=== PATIENT | female | born 1930 | race Caucasian/White ===

== ENCOUNTER 2017-11-10 13:13 | Inpatient (IN) ==
[2017-11-10 14:16] LABS: Bilirubin,Urine Negative (Negative); Blood,Urine Negative (Negative); Clarity,Urine Clear (Clear); Color,Urine Yellow (Yellow); Glucose,Urine (UA) Normal (Normal); Ketones,Urine Negative (Negative); Leukocyte Esterase,Urine Small (Negative); Nitrite,Urine Negative (Negative); Protein,Urine Negative (Neg-Trace); Specific Gravity,Urine 1.018 (1.010-1.025); Urobilinogen,Urine Normal (Normal)
[2017-11-10 14:19] LABS: Basophils # 0.1 K/mcL (0.0-0.2); Basophils % 0.3 %; Eosinophils # 0.1 K/mcL (0.0-0.6); Eosinophils % 0.5 %; Hematocrit 36.6 % (35.3-44.9); Hemoglobin 11.8 g/dL (11.5-15.4); Immature Granulocytes % 0.2 % (0-4); Lymphocytes # 12.2 K/mcL (0.6-4.6); Lymphocytes % 65.9 %; Mean Corpuscular HGB Conc 32.2 g/dL (31.6-35.5); Mean Corpuscular Hemoglobin 30.9 pg (28.0-33.3); Mean Corpuscular Volume 95.8 fL (83.0-100.0); Mean Platelet Volume 10.4 fL (9.4-12.4); Monocytes # 1.2 K/mcL (0.0-1.3); Monocytes % 6.5 %; Neutrophils # 4.9 K/mcL (1.6-8.9); Platelet Count 142 K/mcL (140-400); Red Blood Count 3.82 M/mcL (3.82-4.97); Red Cell Distribution Width 13.8 % (11.5-14.5); Segmented Neutrophils % 26.6 %
[2017-11-10 14:19] LABS: Bacteria,Urine None Seen per hpf (None-Few); Hyaline Casts,Urine None Seen per lpf (None-Few); RBC,Urine 0-3 per hpf (0-3); Squamous Epithelial Cell,Urine Moderate per lpf (None-Few); WBC,Urine 0-3 per hpf (0-3)
[2017-11-10 14:22] LABS: Platelet Estimate Normal (Normal)
[2017-11-10 14:39] LABS: Alanine Aminotransferase 12 Units/L (7-52); Albumin/Globulin Ratio 1.9 (1.1-2.2); Alkaline Phosphatase 61 Units/L (34-104); Aspartate Amino Transferase 16 Units/L (13-39); BUN/Creatinine Ratio 15 (6-26); Bilirubin,Direct 0.1 mg/dL (0.0-0.2); Bilirubin,Indirect 0.3 mg/dL (0.0-1.2); Bilirubin,Total 0.4 mg/dL (0.3-1.0); Blood Urea Nitrogen 12 mg/dL (8-23); Calcium 8.9 mg/dL (8.6-10.3); Carbon Dioxide 25 mEq/L (23-29); Chloride 107 mEq/L (98-107); Globulin 2.1 g/dL (2.4-3.5); Glucose 105 mg/dL (70-105); Lipase 17 Units/L (11-82); Osmolality,Calculated 284 (280-300); Potassium 4.1 mEq/L (3.5-5.1); Sodium 137 mEq/L (136-145); Total Protein 6.1 g/dL (6.4-8.9); eGFR For Non-African Americans > 60 (> 60)
--- NOTE | 2017-11-10 14:44 | Emergency Department Note ---
Disposition Clinical Impression: Weakness Abdominal pain Qualifiers: Abdominal location: unspecified location Qualified Code(s): R10.9 - Unspecified abdominal pain Diverticulosis Qualifiers: Diverticulosis site: unspecified location Diverticulosis bleeding: diverticulosis without bleeding Qualified Code(s): K57.90 - Diverticulosis of intestine, part unspecified, without perforation or abscess without bleeding Disposition: Admitted As Inpatient Condition: Fair General Adult HPI - General Chief complaint: ED Urogenital-Female Stated complaint: Fever/Pain/Spasms/low BC/Weakness/Nausea Time Seen by Provider: 11/10/17 13:26 Source: patient Mode of arrival: ambulatory Limitations: no limitations Nursing Notes Reviewed: Yes Vital Signs Reviewed: Yes - History of Present Illness HPI Narrative: 86-year-old female with history of hypertension presents for evaluation of multiple complaints. No step fever and lower abdominal tenderness and spasm. Patient states that she was seen here over the past week. Notes to be seen that week ago for similar symptoms. Patient thought it was related to a possible Larson catheter. Patient fell a couple days ago with no LOC. Evaluate the ER at that time. Patient does live alone by herself. Presents in the care of family. Family states the patient's got progressively weak. Also complaining of lower abdominal tenderness. No nausea vomiting. Notes objective fevers. Denies any chest pain. 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 Pain Scale: 10 - Related Data Home Medications Medication Instructions Recorded Confirmed Gabapentin [Neurontin] 800 mg PO TID 06/02/15 11/10/17 Atenolol [Tenormin] 25 mg PO DAILY 07/16/15 11/10/17 Calcium Carbonate [Calcium] 2,000 mg PO DAILY 07/16/15 11/10/17 Ergocalciferol (VITAMIN D2) 1,000 unit PO DAILY 07/16/15 11/10/17 [Vitamin D] LORazepam [Ativan] 1 mg PO QAM 07/16/15 11/10/17 Multivitamin [Multivitamins] 1 each PO DAILY 07/16/15 11/10/17 LORazepam [Ativan] 2 mg PO HS 11/09/16 11/10/17 Tizanidine HCl [Zanaflex] 2 mg PO HS 11/09/16 11/10/17 HYDROcodone/Acet 7.5/325 mg [[place] 1 tab PO Q6H PRN 01/27/17 11/10/17 7.5-325 mg] Citalopram Hydrobromide 20 mg PO DAILY 11/10/17 11/10/17 [Citalopram HBr] DULoxetine [Cymbalta] 20 mg PO DAILY 11/10/17 11/10/17 Omeprazole [PriLOSEC] 20 mg PO DAILY 11/10/17 11/10/17 Previous Rx's Medication Instructions Recorded Oxybutynin [Ditropan] 5 mg PO BID 5 Days #10 tablet 11/03/17 Allergies Allergy/AdvReac Type Severity Reaction Status Date / Time No Known Allergies Allergy Verified 11/07/17 21:06 All systems ED: reviewed and negative except as stated. Constitutional: Reports: fever Cardiovascular: Denies: chest pain Respiratory: Denies: cough, dyspnea, wheezes Gastrointestinal: Reports: abdominal pain. 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: Reports: no BUILDING COMPONENTS DESIGNER history - Social History Smoking Status: Never smoker Smokeless Tobacco Status: No Alcohol use: Reports: none Drug use: Reports: none Physical Exam - General Limitations: no limitations General appearance: alert, anxious - Head Head exam: atraumatic, normocephalic, normal inspection, other (Aged ecchymosis over the chin.) - Eye Eye exam: Present: normal appearance, PERRL, EOMI - ENT ENT exam: normal exam - Neck Neck exam: Present: normal inspection - Chest Chest inspection: Present: normal inspection - Respiratory Respiratory exam: Present: normal lung sounds bilaterally. Absent: respiratory distress - Cardiovascular Cardiovascular exam: Present: regular rate, normal rhythm. Absent: systolic murmur - Abdominal Exam Abdominal exam: Present: soft, Non-Tender - Extremities Exam Extremities exam: Present: normal inspection. Absent: pedal edema - Back Exam Back exam: Present: normal inspection - Neurological Exam Neurological exam: Present: alert, oriented X3, CN II-XII intact - Skin Skin exam: Present: warm, dry, intact, normal color Course Course Narrative: Patient presents to the ED. Previous history shows recurrent ED visits over the past week. Those were reviewed. Concerns the patient does not have resources available at home to take care of herself. Will attempt to contact social work regarding assistance. We will also get basic lab CT scan will be obtained since the patient did fall. Patient will likely be admitted. - Reevaluation(s) Reevaluation #1: Patient's repeat abdominal exam is unremarkable. Patient states he has to use restroom. We will check a post void residual. Answers initially for urinary retention are the patient declined any full catheter placement. Patient would benefit from formal PT OT evaluation discharge planning. Time: 16:14 Vital Signs Temperature 98.1 F 11/10/17 13:18 Pulse Rate 56 11/10/17 13:18 Respiratory Rate 16 11/10/17 13:18 Blood Pressure 112/61 11/10/17 13:18 O2 Sat by Pulse Oximetry 97 11/10/17 13:18 Temperature 98.7 F 11/10/17 17:04 Pulse Rate 59 11/10/17 15:52 Respiratory Rate 16 11/10/17 17:04 Blood Pressure 118/69 11/10/17 17:04 O2 Sat by Pulse Oximetry 99 11/10/17 15:52 Oxygen Delivery Oxygen Delivery Room Air Medical Decision Making - MDM Narrative Medical decision making narrative: Patient presents for concerns of multiple complaints including a fever lower abdominal pain and spasm. Patient was evaluated multiple times over the past week. During the course the patient's ED evaluation the patient had CT abdomen and pelvis given her recent fall. No head injury. Patient states that she fell a couple days ago and was evaluated at that time. Patient's complaining of lower abdominal tenderness and pain. Patient had screening labs including a UA as well as CBC and CMP. UA shows no signs of infection. Chest x-ray also shows no signs of infection. Concerned that this is the patient does not have appropriate resources at home. Did get social work involved in patient's care. Patient would likely benefit from inpatient PT OT evaluation and discharge planning. - Lab Data Lab results reviewed: Yes I reviewed the patient's lab results. Result diagrams: 11/10/17 13:56 11/10/17 13:56 Lab Results 11/10/17 11/10/17 11/10/17 Range/Units 13:52 13:56 13:56 WBC 18.5 H (4.3-11.1) K/mcL RBC 3.82 (3.82-4.97) M/mcL Hgb 11.8 (11.5-15.4) g/dL Hct 36.6 (35.3-44.9) % MCV 95.8 (83.0-100.0) fL MCH 30.9 (28.0-33.3) pg MCHC 32.2 (31.6-35.5) g/dL RDW 13.8 (11.5-14.5) % Plt Count 142 (140-400) K/mcL MPV 10.4 (9.4-12.4) fL Immature Gran % 0.2 (0-4) % Seg Neutrophils % 26.6 % Lymphocytes % 65.9 % Monocytes % 6.5 % Eosinophils % 0.5 % Basophils % 0.3 % Neutrophils # 4.9 (1.6-8.9) K/mcL Lymphocytes # 12.2 H (0.6-4.6) K/mcL Monocytes # 1.2 (0.0-1.3) K/mcL Eosinophils # 0.1 (0.0-0.6) K/mcL Basophils # 0.1 (0.0-0.2) K/mcL Platelet Estimate Normal (Normal) Sodium 137 (136-145) mEq/L Potassium 4.1 (3.5-5.1) mEq/L Chloride 107 (98-107) mEq/L Carbon Dioxide 25 (23-29) mEq/L BUN 12 (8-23) mg/dL Creatinine 0.80 (0.60-1.20) mg/dL Est GFR ( Amer) > 60 (> 60) Est GFR (Non-Af Amer) > 60 (> 60) BUN/Creatinine Ratio 15 (6-26) Glucose 105 (70-105) mg/dL Calculated Osmolality 284 (280-300) Lactic Acid (0.5-2.2) mmol/L Calcium 8.9 (8.6-10.3) mg/dL Total Bilirubin 0.4 (0.3-1.0) mg/dL Direct Bilirubin 0.1 (0.0-0.2) mg/dL Indirect Bilirubin 0.3 (0.0-1.2) mg/dL AST 16 (13-39) Units/L ALT 12 (7-52) Units/L Alkaline Phosphatase 61 (34-104) Units/L Serum Total Protein 6.1 L (6.4-8.9) g/dL Albumin 4.0 (3.5-5.7) g/dL Globulin 2.1 L (2.4-3.5) g/dL Albumin/Globulin Ratio 1.9 (1.1-2.2) Lipase 17 (11-82) Units/L Urine Color Yellow (Yellow) Urine Clarity Clear (Clear) Urine pH 6.0 (5.0-8.0) pH Units Ur Specific [place] 1.018 (1.010-1.025) Urine Protein Negative (Neg-Trace) mg/dL Urine Glucose (UA) Normal (Normal) mg/dL Urine Ketones Negative (Negative) mg/dL Urine Blood Negative (Negative) Urine Nitrite Negative (Negative) Urine Bilirubin Negative (Negative) Urine Urobilinogen Normal (Normal) mg/dL Ur Leukocyte Esterase Small H (Negative) Urine Microscopic RBC 0-3 (0-3) per hpf Urine Microscopic WBC 0-3 (0-3) per hpf Ur Squamous Epith Cells Moderate H (None-Few) per lpf Urine Bacteria None Seen (None-Few) per hpf Hyaline Casts None Seen (None-Few) per lpf Ur Culture Indicated? YES A (NO) 11/10/17 Range/Units 13:56 WBC (4.3-11.1) K/mcL RBC (3.82-4.97) M/mcL Hgb (11.5-15.4) g/dL Hct (35.3-44.9) % MCV (83.0-100.0) fL MCH (28.0-33.3) pg MCHC (31.6-35.5) g/dL RDW (11.5-14.5) % Plt Count (140-400) K/mcL MPV (9.4-12.4) fL Immature Gran % (0-4) % Seg Neutrophils % % Lymphocytes % % Monocytes % % Eosinophils % % Basophils % % Neutrophils # (1.6-8.9) K/mcL Lymphocytes # (0.6-4.6) K/mcL Monocytes # (0.0-1.3) K/mcL Eosinophils # (0.0-0.6) K/mcL Basophils # (0.0-0.2) K/mcL Platelet Estimate (Normal) Sodium (136-145) mEq/L Potassium (3.5-5.1) mEq/L Chloride (98-107) mEq/L Carbon Dioxide (23-29) mEq/L BUN (8-23) mg/dL Creatinine (0.60-1.20) mg/dL Est GFR ( Amer) (> 60) Est GFR (Non-Af Amer) (> 60) BUN/Creatinine Ratio (6-26) Glucose (70-105) mg/dL Calculated Osmolality (280-300) Lactic Acid 1.0 (0.5-2.2) mmol/L Calcium (8.6-10.3) mg/dL Total Bilirubin (0.3-1.0) mg/dL Direct Bilirubin (0.0-0.2) mg/dL Indirect Bilirubin (0.0-1.2) mg/dL AST (13-39) Units/L ALT (7-52) Units/L Alkaline Phosphatase (34-104) Units/L Serum Total Protein (6.4-8.9) g/dL Albumin (3.5-5.7) g/dL Globulin (2.4-3.5) g/dL Albumin/Globulin Ratio (1.1-2.2) Lipase (11-82) Units/L Urine Color (Yellow) Urine Clarity (Clear) Urine pH (5.0-8.0) pH Units Ur Specific [place] (1.010-1.025) Urine Protein (Neg-Trace) mg/dL Urine Glucose (UA) (Normal) mg/dL Urine Ketones (Negative) mg/dL Urine Blood (Negative) Urine Nitrite (Negative) Urine Bilirubin (Negative) Urine Urobilinogen (Normal) mg/dL Ur Leukocyte Esterase (Negative) Urine Microscopic RBC (0-3) per hpf Urine Microscopic WBC (0-3) per hpf Ur Squamous Epith Cells (None-Few) per lpf Urine Bacteria (None-Few) per hpf Hyaline Casts (None-Few) per lpf Ur Culture Indicated? (NO) - Radiology Data Radiology results reviewed: Yes I reviewed the patient's radiology results. Abdomen/Pelvis CT 11/10/17 14:30 IMPRESSION: 1. No acute process 2. Cholelithiasis 3. Colonic diverticulosis 4. Left adrenal adenoma 5. Stable 3.2 cm abdominal aortic aneurysm RECOMMENDATIONS: Managing Abdominal Aortic Aneurysms 2.6-2.9 cm: Every 5 years* 3.0-3.4 cm: Every 3 years. 3.5-3.9 cm: Every 1 year. 4.0-4.4 cm: Every 1 year. Recommend vascular consultation. 4.5-5.4 cm: Every 6 months. Recommend vascular consultation. Greater than or equal to 5.5 cm: Referral to vascular surgeon. *For abdominal aortas with maximum diameter of 2.6-2.9 cm meeting criteria for AAA (>50% of proximal normal segment). D/ / Nathan Acharya MD / Nathan Acharya MD Interpreting Provider: Nathan Acharya MD Chest X-Ray 11/10/17 14:30 IMPRESSION: 1. No active pulmonary disease. D/ / Pollo Berger MD / Pollo Berger MD Interpreting Provider: Pollo Berger MD - EKG Data EKG #1 EKG attestation: Yes I reviewed and interpreted this EKG. EKG shows normal: sinus rhythm Rate: normal Rhythm: NSR [place]/QRS: normal T wave inversions noted in: v1 Interpretation: no acute changes S.Blair - Gilda Situation: Demographics Background: Presenting Complaint Assessment: Vital Signs, Course and respsone to treatment, Patient/Family Expectation Recommendation: Barrier(s) to disposition, Recommendation based on pending studies, treatments, or consults S.BJovanyAGrant Report Given to: Hospitalist Gilda Nice Time: 16:15 Attestation Statement - Attestation Attestation: I examined this patient and my medical decision-making was reviewed with the Resident Physician. I agree with the documented findings, disposition and treatment plan as described except to the extent set forth below. Findings consistent with chronic symptoms of deconditioning and lower abd pain. Ct scan shows no acute findings. Patient will be admitted for deconditioning, pt and ot , discharge planning and treatment of chronic abd pain.
[2017-11-10] MEDS ORDERED: Naloxone 0.4 MG/ML INJ IVP PRN (18:28)
[2017-11-10] MEDS ORDERED: Ondansetron ODT 4 MG TAB.RAPDIS SL PRN (18:38)
[2017-11-10] MEDS ORDERED: Acetaminophen 325 MG TABLET PO PRN (19:49)
[2017-11-10] MEDS: tiZANidine 4 MG TABLET PO SCH (20:00)
[2017-11-10] MEDS: *HR* HYDROcodone/Acet 7.5/325 mg TABLET PO PRN (20:00)
[2017-11-10] MEDS: Gabapentin 400 MG CAPSULE PO SCH (20:00)
[2017-11-10] MEDS: *HR* LORazepam 1 MG TABLET PO SCH (20:00)
--- NOTE | 2017-11-10 20:42 | Internal Med History&Physical ---
Date of Encounter: 11/10/17 Time of Encounter: 19:00 Internal Medicine - H&P: HPI Admitted From: Home Plans for Post Hospital Care: Transfer Alf Facility History of present illness: Ms. Chong is a 86 year old female Past Med Surg Social Fam HX - Past Medical History Medical history: GERD, hyperlipidemia, osteoporosis Additional medical history: LL3 leukemia Psychiatric history: anxiety - Past Surgical History Surgical History: appendectomy, cataract, hysterectomy Additional surgical history: Back surgery. PRE-CANCER ON FACE REMOVED. COLONOSCOPY X3, EGD. CAM CATARACT REMOVAL. 08/18/15 COLPOCLEISIS/VAGINAL CLOSURE @[facility] W/DR WILL - Social History Smoking Status: Never smoker Smokeless Tobacco Status: No Alcohol use: none Drug use: none - Family History Mother Adopted: No Living Status: Hx Family Cardiac Disorders: Yes (SD) Internal Medicine - H&P: Meds Gabapentin [Neurontin] 800 mg PO TID 06/02/15 [History] Atenolol [Tenormin] 25 mg PO DAILY 07/16/15 [History] Calcium Carbonate [Calcium] 2,000 mg PO DAILY 07/16/15 [History] Ergocalciferol (VITAMIN D2) [Vitamin D] 1,000 unit PO DAILY 07/16/15 [History] Multivitamin [Multivitamins] 1 each PO DAILY 07/16/15 [History] Tizanidine HCl [Zanaflex] 0.5 mg PO HS 11/09/16 [History] HYDROcodone/Acet 7.5/325 mg [[place] 7.5-325 mg] 1 tab PO Q6H PRN 01/27/17 [ History] Oxybutynin [Ditropan] 5 mg PO BID 5 Days #10 tablet 11/03/17 [Rx] Citalopram Hydrobromide [Citalopram HBr] 20 mg PO DAILY 11/10/17 [History] DULoxetine [Cymbalta] 20 mg PO DAILY 11/10/17 [History] LORazepam [Lorazepam] 0.5 mg PO TID 11/10/17 [History] Omeprazole [PriLOSEC] 20 mg PO DAILY 11/10/17 [History] 3 Allergy/AdvReac Type Severity Reaction Status Date / Time No Known Allergies Allergy Verified 11/07/17 21:06 - Constitutional Vitals: Temp Pulse Resp BP Pulse Ox 98.7 F 59 16 118/69 97 11/10/17 17:04 11/10/17 15:52 11/10/17 17:04 11/10/17 17:04 11/10/17 19:43 Exam: The patient is an 86-year-old woman. She lives alone at home. She has had lower abdominal pain for a few weeks; with worsening in the last week. It is associated with some nausea. The pain and nausea seem to be worse after eating. She was on liquid diet for a short period of time; advance to regular diet recently. She tells me that her last bowel movement was about 10 days ago. She was diagnosed with diverticulitis a few years ago. She feels like she may have some fever. However, her temperature checked in the emergency room is normal. One can see her WBC count of 18.5 thousand. However, she has had leukocytosis all the time for the last 2+ years. She complains of progressing weaknessdeveloping in the last few/several months. It is associated with some dizziness/lightheadedness. She is afraid of walking; feels that she may be falling. 3 days ago she tripped over her lounge chair. She does have bruising in the lower portion of her right face. She tells me that her dizziness/lightheadedness seems to be worse when she is assuming supine position. He denies chest pain and difficulty breathing. She denies coughing and wheezing. She seems to have normal urination. The patient was evaluated in our emergency room 3 times in the last week. She is a very poor historian. It seems like she has been treated for hypertension, GERD, chronic low back pain with radiation to her groin/upper legs , osteoporosis and anxiety. REVIEW OF SYSTEMS: All 14 organ systems were reviewed by me with the patient. Positive and pertinent negative findings are listed above. The rest of organ systems is negative. PHYSICAL EXAM: Skin: Free of rash and discoloration. Eyes: Sclera is white. There is no discharge from eyes. ENMT: Oral/pharyngeal mucosa is normal in appearance. There is no discharge from nose or ears. Respiratory: Normal breath sounds with no crackles and wheezes bilaterally. CV: Heart is regular with no gallop or murmur. GI: Abdomen is flat and soft with no palpable mass or visceromegaly. : There is mild tenderness in the lower quadrants. There is no palpable mass or visceromegaly. Neuro exam: He has good strength in upper and lower extremities. He has normal eye movements. Psychiatric: He has normal affect. His thought process is appropriate to the situation. CT of abdomen and pelvis was obtained. It does not show any acute process. It shows cholelithiasis and colonic diverticulosis. It shows left adrenal adenoma and stable 3.2 cm abdominal aortic aneurysm. Chest x-ray is normal. Her hemoglobin is 11.8 with WBC of 18.5 thousand and normal platelet count. She had WBC of 12.8 thousand 3 days ago and 16.8 thousand on 11/02/17. Her electrolytes are normal. BUN and creatinine are 12 and 0.8 respectively. She has normal glucose and calcium. She has normal liver function tests and lipase. Her UA shows normal findings. A/P: Lower abdominal pain with nausea. She may have a gallbladder disease. We will obtain ultrasound of the gallbladder/liver. We will get biliary scan, if needed. We will keep her on a low fat diet. Constipation. I will keep her on scheduled Colace and MiraLAX. We will give her when necessary Dulcolax. Leukocytosis. Seems to be chronic in nature. See above. Weakness/dizziness. The cause is unknown. We will be watching her in the hospital for the next couple days. We will try low-dose meclizine. Hypertension. Her blood pressure is on the low side. Will stop her atenolol. Hopefully it will help her weakness/dizziness. GERD. We will continue Prilosec. Chronic low back pain with radiation to groin/upper portions of legs. We will continue gabapentin, Zanaflex and when necessary [place]. Anxiety. We will continue her lorazepam. Other problems are mentioned by me above. They seem to be stable/controlled. Internal Med - H&P Results - Labs CBC & Chem 7: 11/10/17 13:56 11/10/17 13:56 - Time Spent With Patient Total time spent is greater than 50% in coordination of care (as documented) at patient's floor/unit and/or counseling patient: 25 - 35 minutes
[2017-11-10] MEDS: traMADol 50 MG TABLET PO PRN (21:25)
[2017-11-11] MEDS: *HR* HYDROcodone/Acet 7.5/325 mg TABLET PO PRN ×2 (04:51→20:20)
[2017-11-11 05:24] LABS: Basophils # 0.1 K/mcL (0.0-0.2); Basophils % 0.4 %; Eosinophils # 0.1 K/mcL (0.0-0.6); Eosinophils % 0.7 %; Hemoglobin 10.5 g/dL (11.5-15.4); Immature Granulocytes % 0.1 % (0-4); Lymphocytes % 76.3 %; Mean Corpuscular HGB Conc 32.8 g/dL (31.6-35.5); Mean Corpuscular Hemoglobin 31.1 pg (28.0-33.3); Mean Corpuscular Volume 94.7 fL (83.0-100.0); Mean Platelet Volume 10.5 fL (9.4-12.4); Monocytes % 4.6 %; Neutrophils # 2.9 K/mcL (1.6-8.9); Platelet Count 135 K/mcL (140-400); Red Blood Count 3.38 M/mcL (3.82-4.97); Red Cell Distribution Width 13.9 % (11.5-14.5); Segmented Neutrophils % 17.9 %
[2017-11-11 05:38] LABS: Lymphocytes # 12.4 K/mcL (0.6-4.6); Monocytes # 0.8 K/mcL (0.0-1.3); Platelet Estimate Slight Decrease (Normal); Reactive Lymphocytes Present (Not Present)
[2017-11-11] MEDS: traMADol 50 MG TABLET PO PRN (06:06)
[2017-11-11] MEDS: Gabapentin 400 MG CAPSULE PO SCH ×3 (08:32→20:21)
[2017-11-11] MEDS: *HR* LORazepam 1 MG TABLET PO SCH ×2 (08:32→20:20)
[2017-11-11] MEDS ORDERED: *HR* Morphine 2 MG/ML SYRINGE IVP ONE (13:23)
--- NOTE | 2017-11-11 18:21 | Internal Med Progress Note ---
Hospitalist Progress Note - Encounter Date of Encounter: 11/11/17 Time of Encounter: 18:21 - Subjective Interval History: SUBJECTIVE: I saw this patient in the fire technician. She was not having any abdominal pain at that time. "My stomach pain has not started yet; it will, when I get up". Denies nausea and vomiting. He has not received her breakfast yet. OBJECTIVE: Skin: Free of rash and discoloration. ENMT: Oral/pharyngeal mucosa is normal in appearance. Eyes: Sclera is white. There is no discharge from eyes. Respiratory: Normal breath sounds; no crackles or wheezes. CV: Heart is regular; no gallop or murmur. GI: Abdomen is soft and not tender. There is no palpable mass or visceromegaly. Neuro: There is no focal deficits. ASSESSMENT AND PLAN: Abdominal pain. It is mostly in the lower abdomen. It is not present today morning. 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 We will be watching this problem closely. Recurrent nausea. There is no evidence for gallbladder disease. Constipation. I started her on MiraLAX, Colace and when necessary Dulcolax. Elevated WBC count. Chronic. 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 She has had this problem for a couple years. For outpatient treatment. Dizziness. Not present today morning. We will see how she does when attempting ambulation. She started on low-dose meclizine. Hypertension. Her blood pressure is okay without the stopped by me atenolol. Stopping atenolol will likely help her dizziness. GERD. Under control. We will continue Prilosec. Chronic low back pain. We will continue Neurontin and when necessary [place]. The patient's nausea could be related to gabapentin and/or [place]. Anxiety. She is on pretty good dose of lorazepam. I am not going to discontinue that, as I may cause withdrawal symptoms. DISPOSITION: She would likely benefit from ECF. - Exam Vitals: Temp Pulse Resp BP Pulse Ox 97.7 F 57 17 101/61 95 11/11/17 16:24 11/11/17 16:24 11/11/17 16:24 11/11/17 16:24 11/11/17 16:24 Exam: xx - Assessment and Plan (1) Abdominal pain Current Visit: Yes Status: Acute (2) Nausea Current Visit: Yes Status: Acute (3) Constipation Current Visit: Yes Status: Acute (4) Elevated WBC count Current Visit: No Status: Acute (5) Dizziness Current Visit: Yes Status: Acute (6) HTN (hypertension) Current Visit: Yes Status: Acute (7) GERD (gastroesophageal reflux disease) Current Visit: Yes Status: Acute (8) Chronic low back pain Current Visit: Yes Status: Acute (9) Anxiety Current Visit: Yes Status: Acute - Time Spent with Patient Total time spent is greater than 50% in coordination of care (as documented) at patient's floor/unit and/or counseling patient: 25 - 35 minutes Plan of Care Discussed with: patient Internal Medicine: Result - Labs CBC & Chem 7: 11/11/17 04:43 11/10/17 13:56 Labs: Short CBC 11/11/17 Range/Units 04:43 WBC 16.2 H (4.3-11.1) K/mcL Hgb 10.5 L (11.5-15.4) g/dL Hct 32.0 L (35.3-44.9) % Plt Count 135 L (140-400) K/mcL Neutrophils # 2.9 (1.6-8.9) K/mcL - Impressions Impressions Gallbladder Ultrasound 11/10/17 18:33 IMPRESSION: 1. Mild gallbladder wall thickening without pericholecystic fluid or stones evident. 2. Mild common duct dilatation without choledocholithiasis. Correlate with liver function tests. 3. Atherosclerosis of the abdominal aorta. AAA demonstrated on CT earlier today is not included on right upper quadrant. 4. Probable multifocal hepatic cysts. Several of the lesions in the liver are indeterminate and could reflect other processes such as hemangioma or neoplasia. Contrast-enhanced CT or MRI is recommended versus follow-up ultrasound imaging in 3 months to ensure stability. D/ / Kailash Stubbs / Kailash Stubbs Interpreting Provider: Kailash Stubbs Bile Acid Absorption NM 11/11/17 08:42 IMPRESSION: No scintigraphic findings of acute cholecystitis. D/ / Ehsan Brennan MD / Ehsan Brennan MD Interpreting Provider: Ehsan Brennan MD Consult Discharge Plan - Plan Referrals: Pop Matson MD [Primary Care Provider] - (Requested a follow up appointment in 7-10 days. ) (1) Abdominal pain Qualifiers: Abdominal location: lower abdomen, unspecified Qualified Code(s): R10.30 - Lower abdominal pain, unspecified (3) Constipation Qualifiers: Constipation type: unspecified constipation type Qualified Code(s): K59.00 - Constipation, unspecified (4) Elevated WBC count Qualifiers: Leukocytosis type: lymphocytosis Qualified Code(s): D72.820 - Lymphocytosis ( symptomatic) (6) HTN (hypertension) Qualifiers: Hypertension type: essential hypertension Qualified Code(s): I10 - Essential (primary) hypertension (7) GERD (gastroesophageal reflux disease) Qualifiers: Esophagitis presence: esophagitis presence not specified Qualified Code(s): K21.9 - Gastro-esophageal reflux disease without esophagitis (8) Chronic low back pain Qualifiers: Back pain laterality: midline Sciatica presence: with sciatica Sciatica laterality: bilateral sciatica Qualified Code(s): M54.41 - Lumbago with sciatica, right side; M54.42 - Lumbago with sciatica, left side; G89.29 - Other chronic pain
[2017-11-11] MEDS: tiZANidine 4 MG TABLET PO SCH (20:21)
[2017-11-12 03:43] LABS: Basophils # 0.1 K/mcL (0.0-0.2); Basophils % 0.5 %; Eosinophils # 0.1 K/mcL (0.0-0.6); Eosinophils % 0.9 %; Hematocrit 35.2 % (35.3-44.9); Hemoglobin 11.3 g/dL (11.5-15.4); Immature Granulocytes % 0.1 % (0-4); Mean Corpuscular HGB Conc 32.1 g/dL (31.6-35.5); Mean Corpuscular Volume 96.7 fL (83.0-100.0); Mean Platelet Volume 10.6 fL (9.4-12.4); Monocytes # 1.3 K/mcL (0.0-1.3); Monocytes % 8.9 %; Neutrophils # 2.5 K/mcL (1.6-8.9); Platelet Count 150 K/mcL (140-400); Red Blood Count 3.64 M/mcL (3.82-4.97); Red Cell Distribution Width 13.8 % (11.5-14.5); Segmented Neutrophils % 16.6 %
[2017-11-12 04:12] LABS: Platelet Estimate Normal (Normal)
[2017-11-12 04:13] LABS: Smudge Cells Present (Not Present)
[2017-11-12] MEDS: Gabapentin 400 MG CAPSULE PO SCH ×3 (08:18→20:29)
[2017-11-12] MEDS: *HR* LORazepam 1 MG TABLET PO SCH ×2 (08:18→20:30)
[2017-11-12] MEDS ORDERED: Bisacodyl 10 MG RECTAL SUPPOSITORY RC ONE (09:38)
--- NOTE | 2017-11-12 15:41 | Internal Med Progress Note ---
Hospitalist Progress Note - Encounter Date of Encounter: 11/12/17 Time of Encounter: 15:00 - Subjective Interval History: SUBJECTIVE: She continues to be constipated. It is not associated with nausea or vomiting. I ordered an extra dose of MiraLAX today morning. Her abdominal pain is mild. It is in the lower half of her abdomen, mostly on the right side. She seems to have good appetite. She continues to have low back pain with radiation to upper portion of her legs (posteriorly). She did some walking with physical therapy today. OBJECTIVE: Skin: Free of rash and discoloration. ENMT: Oral/pharyngeal mucosa is normal in appearance. Eyes: Sclera is white. There is no discharge from eyes. Respiratory: Normal breath sounds; no crackles or wheezes. CV: Heart is regular; no gallop or murmur. GI: Abdomen is soft and not tender. There is no palpable mass or visceromegaly. Neuro: There is no focal deficits. ASSESSMENT AND PLAN: Abdominal pain. It is mostly in the lower abdomen. It is mild. 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 It may be also related to her constipation. We will be watching this problem closely. Recurrent nausea. There is no evidence for gallbladder disease. Constipation. I started her on MiraLAX, Colace and when necessary Dulcolax. She got an extra dose of MiraLAX today morning Elevated WBC count. Chronic. 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 She has had this problem for a couple years. Stable. For outpatient treatment. Dizziness. Not present today morning. She is on low-dose meclizine. Hypertension. Her blood pressure is okay without the stopped by me atenolol. Stopping atenolol will likely help her dizziness. GERD. Under control. We will continue Prilosec. Chronic low back pain. We will continue Neurontin and when necessary [place]. The patient's nausea could be related to gabapentin and/or [place]. Anxiety. She is on pretty good dose of lorazepam. I am not going to discontinue that, as I may cause withdrawal symptoms. The patient feels weak. She does not feel secure at home. She would like to get some physical therapy in [facility]. We consulted social media marketing manager. DISPOSITION: She would likely benefit from [facility]. - Exam Vitals: Temp Pulse Resp BP Pulse Ox 98.3 F 67 16 101/60 94 11/12/17 14:58 11/12/17 14:58 11/12/17 14:58 11/12/17 14:58 11/12/17 14:58 Exam: xx - Assessment and Plan (1) Abdominal pain Current Visit: Yes Status: Acute (2) Nausea Current Visit: Yes Status: Acute (3) Constipation Current Visit: Yes Status: Acute (4) Elevated WBC count Current Visit: No Status: Acute (5) Dizziness Current Visit: Yes Status: Acute (6) HTN (hypertension) Current Visit: Yes Status: Acute (7) GERD (gastroesophageal reflux disease) Current Visit: Yes Status: Acute (8) Chronic low back pain Current Visit: Yes Status: Acute (9) Anxiety Current Visit: Yes Status: Acute - Time Spent with Patient Total time spent is greater than 50% in coordination of care (as documented) at patient's floor/unit and/or counseling patient: 25 - 35 minutes Plan of Care Discussed with: patient Internal Medicine: Result - Labs CBC & Chem 7: 11/12/17 03:00 11/10/17 13:56 Labs: Short CBC 11/12/17 Range/Units 03:00 WBC 15.0 H (4.3-11.1) K/mcL Hgb 11.3 L (11.5-15.4) g/dL Hct 35.2 L (35.3-44.9) % Plt Count 150 (140-400) K/mcL Neutrophils # 2.5 (1.6-8.9) K/mcL Consult Discharge Plan - Plan Referrals: Pop Matson MD [Primary Care Provider] - (Requested a follow up appointment in 7-10 days. ) (1) Abdominal pain Qualifiers: Abdominal location: lower abdomen, unspecified Qualified Code(s): R10.30 - Lower abdominal pain, unspecified (3) Constipation Qualifiers: Constipation type: unspecified constipation type Qualified Code(s): K59.00 - Constipation, unspecified (4) Elevated WBC count Qualifiers: Leukocytosis type: lymphocytosis Qualified Code(s): D72.820 - Lymphocytosis ( symptomatic) (6) HTN (hypertension) Qualifiers: Hypertension type: essential hypertension Qualified Code(s): I10 - Essential (primary) hypertension (7) GERD (gastroesophageal reflux disease) Qualifiers: Esophagitis presence: esophagitis presence not specified Qualified Code(s): K21.9 - Gastro-esophageal reflux disease without esophagitis (8) Chronic low back pain Qualifiers: Back pain laterality: midline Sciatica presence: with sciatica Sciatica laterality: bilateral sciatica Qualified Code(s): M54.41 - Lumbago with sciatica, right side; M54.42 - Lumbago with sciatica, left side; G89.29 - Other chronic pain
[2017-11-12] MEDS: *HR* HYDROcodone/Acet 7.5/325 mg TABLET PO PRN (20:29)
[2017-11-12] MEDS: tiZANidine 4 MG TABLET PO SCH (20:29)
[2017-11-13] MEDS: *HR* HYDROcodone/Acet 7.5/325 mg TABLET PO PRN ×3 (05:54→22:26)
[2017-11-13] MEDS: Gabapentin 400 MG CAPSULE PO SCH ×3 (08:39→22:25)
[2017-11-13] MEDS: *HR* LORazepam 1 MG TABLET PO SCH ×2 (08:39→22:25)
--- NOTE | 2017-11-13 13:54 | Electrocardiograph Report ---
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
--- NOTE | 2017-11-13 17:56 | Internal Med Progress Note ---
Hospitalist Progress Note - Encounter Date of Encounter: 11/13/17 Time of Encounter: 17:55 - Subjective Interval History: SUBJECTIVE: She made a small bowel movements today. Denies nausea/vomiting. She continues to complain of lower abdominal pain; mostly on the right side. Again, she did not have this pain in the morning after awakening. She has normal urination. Denies urinary symptoms. She continues to have low back pain it seems to be radiating to his groins/ upper portions of the posterior thighs. She can walk with minimal assistance; not having any dizziness/lightheadedness. Complains of weakness. OBJECTIVE: Skin: Free of rash and discoloration. ENMT: Oral/pharyngeal mucosa is normal in appearance. Eyes: Sclera is white. There is no discharge from eyes. Respiratory: Normal breath sounds; no crackles or wheezes. CV: Heart is regular; no gallop or murmur. GI: Abdomen is soft. There is mild tenderness in right lower quadrant. There is no palpable mass or visceromegaly. Neuro: There is no focal deficits. ASSESSMENT AND PLAN: Abdominal pain. It is mostly in the lower abdomen. It is mild. It may be either from her lumbar spine disease or some problem related to her bladder or colon. It may be also related to her constipation. We will be watching this problem closely. Recurrent nausea. Subsided. There is no evidence for gallbladder disease. Constipation. I started her on MiraLAX, Colace and when necessary Dulcolax. She got an extra dose of MiraLAX yesterday morning. Elevated WBC count. Chronic. 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 She has had this problem for a few years. Stable. For outpatient treatment, if needed Dizziness. Subsided after stopping her atenolol and starting her on low-dose meclizine. Hypertension. Her blood pressure is under control. We stopped her atenolol. She will likely not need any antihypertensives. GERD. Under control. We will continue Prilosec. Chronic low back pain. We will continue Neurontin and when necessary [place]. The patient's nausea could be related to gabapentin and/or [place]. Anxiety. She is on pretty good dose of lorazepam. I am not going to discontinue that, as I may cause withdrawal symptoms. Debility. The patient feels weak. She does not feel secure to be at home alone. She would like to get some physical therapy in [facility]. We consulted manager social responsibility. DISPOSITION: She would likely benefit from ECF. - Exam Vitals: Temp Pulse Resp BP Pulse Ox 98.0 F 66 15 113/69 96 11/13/17 16:05 11/13/17 16:05 11/13/17 16:05 11/13/17 16:05 11/13/17 16:05 Exam: xx - Assessment and Plan (1) Abdominal pain Current Visit: Yes Status: Acute (2) Nausea Current Visit: Yes Status: Acute (3) Constipation Current Visit: Yes Status: Acute (4) Elevated WBC count Current Visit: No Status: Acute (5) Dizziness Current Visit: Yes Status: Acute (6) HTN (hypertension) Current Visit: Yes Status: Acute (7) GERD (gastroesophageal reflux disease) Current Visit: Yes Status: Acute (8) Chronic low back pain Current Visit: Yes Status: Acute (9) Anxiety Current Visit: Yes Status: Acute (10) Debility Current Visit: Yes Status: Acute - Time Spent with Patient Total time spent is greater than 50% in coordination of care (as documented) at patient's floor/unit and/or counseling patient: 25 - 35 minutes Plan of Care Discussed with: patient Internal Medicine: Result - Labs CBC & Chem 7: 11/12/17 03:00 11/10/17 13:56 Consult Discharge Plan - Plan Referrals: Pop Matson MD [Primary Care Provider] - (Requested a follow up appointment in 7-10 days. ) (1) Abdominal pain Qualifiers: Abdominal location: lower abdomen, unspecified Qualified Code(s): R10.30 - Lower abdominal pain, unspecified (3) Constipation Qualifiers: Constipation type: unspecified constipation type Qualified Code(s): K59.00 - Constipation, unspecified (4) Elevated WBC count Qualifiers: Leukocytosis type: lymphocytosis Qualified Code(s): D72.820 - Lymphocytosis ( symptomatic) (6) HTN (hypertension) Qualifiers: Hypertension type: essential hypertension Qualified Code(s): I10 - Essential (primary) hypertension (7) GERD (gastroesophageal reflux disease) Qualifiers: Esophagitis presence: esophagitis presence not specified Qualified Code(s): K21.9 - Gastro-esophageal reflux disease without esophagitis (8) Chronic low back pain Qualifiers: Back pain laterality: midline Sciatica presence: with sciatica Sciatica laterality: bilateral sciatica Qualified Code(s): M54.41 - Lumbago with sciatica, right side; M54.42 - Lumbago with sciatica, left side; G89.29 - Other chronic pain
[2017-11-13] MEDS: tiZANidine 4 MG TABLET PO SCH (22:25)
[2017-11-14 05:30] LABS: Hematocrit 34.5 % (35.3-44.9); Mean Corpuscular HGB Conc 31.9 g/dL (31.6-35.5); Mean Corpuscular Hemoglobin 30.9 pg (28.0-33.3); Mean Corpuscular Volume 96.9 fL (83.0-100.0); Mean Platelet Volume 10.2 fL (9.4-12.4); Platelet Count 138 K/mcL (140-400); Red Blood Count 3.56 M/mcL (3.82-4.97); Red Cell Distribution Width 13.7 % (11.5-14.5)
[2017-11-14 05:58] LABS: BUN/Creatinine Ratio 20 (6-26); Blood Urea Nitrogen 14 mg/dL (8-23); Calcium 8.9 mg/dL (8.6-10.3); Carbon Dioxide 27 mEq/L (23-29); Chloride 107 mEq/L (98-107); Glucose 84 mg/dL (70-105); Magnesium 2.2 mg/dL (1.6-2.6); Osmolality,Calculated 290 (280-300); Potassium 4.4 mEq/L (3.5-5.1); Sodium 140 mEq/L (136-145); eGFR For Non-African Americans > 60 (> 60)
[2017-11-14 06:03] LABS: Lymphocytes # 9.5 K/mcL (0.6-4.6); Monocytes # 0.3 K/mcL (0.0-1.3)
[2017-11-14 06:04] LABS: Platelet Estimate Normal (Normal); Smudge Cells Present (Not Present)
[2017-11-14] MEDS: Gabapentin 400 MG CAPSULE PO SCH ×3 (08:49→21:42)
[2017-11-14] MEDS: *HR* LORazepam 1 MG TABLET PO SCH ×2 (08:54→21:42)
--- NOTE | 2017-11-14 13:36 | Internal Med Progress Note ---
Hospitalist Progress Note - Encounter Date of Encounter: 11/14/17 Time of Encounter: 13:34 - Subjective Interval History: Seen and examined at bedside today, no acute changes overnight. Patient reportedly has generalized weakness persists. Abdominal pain is resolved at this time. - Exam Vitals: Temp Pulse Resp BP Pulse Ox 97.8 F 59 16 112/71 96 11/14/17 11:43 11/14/17 11:43 11/14/17 11:43 11/14/17 11:43 11/14/17 11:43 Exam: PHYSICAL EXAMINATION: GENERAL: The patient is a well-developed, well-nourished male in no apparent distress. He is alert and oriented x3. HEENT: Head is normocephalic and atraumatic. Extraocular muscles are intact. Pupils are equal, round, and reactive to light and accommodation. NECK: Supple. No carotid bruits. No lymphadenopathy or thyromegaly. LUNGS: Clear to auscultation. HEART: Regular rate and rhythm without murmur. ABDOMEN: Soft, nontender, and nondistended. Positive bowel sounds. No hepatosplenomegaly was noted. EXTREMITIES: Without any cyanosis, clubbing, rash, lesions or edema. NEUROLOGIC: Cranial nerves II through XII are grossly intact. PSYCHIATRIC: Flat affect, but denies suicidal or homicidal ideations. SKIN: No ulceration or induration present. - Assessment and Plan (1) Abdominal pain Current Visit: Yes Status: Acute Assessment and Plan: Presented with persistent abdominal pain reports this as chronic for greater than 17 years; occurred s/p hysterectomy CT imagins of abdomen without acute process --cholelithiasis without cholecystitis 11/14--continuing to endorse abdominal pain and bilateral lower abdomen, pain is mild and tolerable and improves with ambulation. She reports she has had chronic abdominal pain for greater than 17 years S/P hysterectomy; reporting that her bus assistant informed her that he accidentally cut a nerve during the procedure. Additionally, she is reporting constipation on admission but has reported that her bowel movements are more regular with the addition of MiraLAX and Colace as well as when necessary Dulcolax. Given negative CT imaging continue to closely monitor. continue stool softeners-- (2) Elevated WBC count Current Visit: No Status: Acute Assessment and Plan: presents with leukocytosis Review of prior history reveals chronically elevated WBC WBC 18.5 as of 11/10/17 Currently trending down to 14.8 No obvious source of infection h/o Kalie stage 0 CLL; follow outpatient with oncology (3) Nausea Current Visit: Yes Status: Resolved Assessment and Plan: Resolved (4) Constipation Current Visit: Yes Status: Resolved Assessment and Plan: Resolved (5) Dizziness Current Visit: Yes Status: Resolved Assessment and Plan: Resolved with discontinuation of atenolol and addition of low-dose meclizine (6) HTN (hypertension) Current Visit: Yes Status: Acute Assessment and Plan: Per history BP stable Continue anti-HTN meds (7) GERD (gastroesophageal reflux disease) Current Visit: Yes Status: Acute (8) Chronic low back pain Current Visit: Yes Status: Acute Assessment and Plan: Neurontin and when necessary [place] (9) Anxiety Current Visit: Yes Status: Acute Assessment and Plan: Continue anxiolytics (10) Debility Current Visit: Yes Status: Acute Assessment and Plan: Plan for home health at [place] - Time Spent with Patient Total time spent is greater than 50% in coordination of care (as documented) at patient's floor/unit and/or counseling patient: less than 15 minutes Plan of Care Discussed with: patient Internal Medicine: Result - Labs CBC & Chem 7: 11/14/17 04:27 11/14/17 04:27 Labs: Short CBC 11/14/17 Range/Units 04:27 WBC 14.8 H (4.3-11.1) K/mcL Hgb 11.0 L (11.5-15.4) g/dL Hct 34.5 L (35.3-44.9) % Plt Count 138 L (140-400) K/mcL Neutrophils # 5.0 (1.6-8.9) K/mcL BMP 11/14/17 04:27 Sodium 140 Potassium 4.4 Chloride 107 Carbon Dioxide 27 BUN 14 Creatinine 0.70 Glucose 84 Calcium 8.9 Consult Discharge Plan - Plan Additional Instructions: Call [facility] when you get home to have them deliver your wheeled walker. [phone]. Referrals: Pop Matson MD [Primary Care Provider] - (Requested a follow up appointment in 7-10 days. ) (1) Abdominal pain Qualifiers: Abdominal location: lower abdomen, unspecified Qualified Code(s): R10.30 - Lower abdominal pain, unspecified (2) Elevated WBC count Qualifiers: Leukocytosis type: lymphocytosis Qualified Code(s): D72.820 - Lymphocytosis ( symptomatic) (4) Constipation Qualifiers: Constipation type: unspecified constipation type Qualified Code(s): K59.00 - Constipation, unspecified (6) HTN (hypertension) Qualifiers: Hypertension type: essential hypertension Qualified Code(s): I10 - Essential (primary) hypertension (7) GERD (gastroesophageal reflux disease) Qualifiers: Esophagitis presence: esophagitis presence not specified Qualified Code(s): K21.9 - Gastro-esophageal reflux disease without esophagitis (8) Chronic low back pain Qualifiers: Back pain laterality: midline Sciatica presence: with sciatica Sciatica laterality: bilateral sciatica Qualified Code(s): M54.41 - Lumbago with sciatica, right side; M54.42 - Lumbago with sciatica, left side; G89.29 - Other chronic pain
[2017-11-14] MEDS: tiZANidine 4 MG TABLET PO SCH (21:43)
[2017-11-14] MEDS: *HR* HYDROcodone/Acet 7.5/325 mg TABLET PO PRN (23:16)
[2017-11-15] MEDS: *HR* HYDROcodone/Acet 7.5/325 mg TABLET PO PRN ×2 (06:06→18:45)
[2017-11-15] MEDS: *HR* LORazepam 1 MG TABLET PO SCH ×2 (08:07→20:00)
[2017-11-15] MEDS: Gabapentin 400 MG CAPSULE PO SCH ×3 (08:07→20:00)
--- NOTE | 2017-11-15 09:13 | Internal Med Progress Note ---
Hospitalist Progress Note - Encounter Date of Encounter: 11/15/17 Time of Encounter: 09:10 - Subjective Interval History: Seen and examined at bedside today, no acute changes overnight. Patient reporting generalized weakness and abdominal pain as well as rectal and vaginal pain; This is chronic - Exam Vitals: Temp Pulse Resp BP Pulse Ox 98.0 F 60 16 133/79 97 11/15/17 06:41 11/15/17 06:41 11/15/17 06:41 11/15/17 06:41 11/15/17 06:41 Exam: PHYSICAL EXAMINATION: GENERAL: The patient is a well-developed, well-nourished male in no apparent distress. He is alert and oriented x3. HEENT: Head is normocephalic and atraumatic. Extraocular muscles are intact. Pupils are equal, round, and reactive to light and accommodation. NECK: Supple. No carotid bruits. No lymphadenopathy or thyromegaly. LUNGS: Clear to auscultation B/L AP&L. HEART: Regular rate and rhythm, S1, S2, without murmur. ABDOMEN: Soft and nondistended. Positive bowel sounds. No hepatosplenomegaly was noted. Mild B/L lower quadrant abdominal tenderness. EXTREMITIES: Without any cyanosis, clubbing, rash, lesions or edema. NEUROLOGIC: Cranial nerves II through XII are grossly intact. PSYCHIATRIC: Appropriate affect, but denies suicidal or homicidal ideations. SKIN: No ulceration or induration present. - Assessment and Plan (1) Abdominal pain Current Visit: Yes Status: Acute Assessment and Plan: Presented with persistent abdominal pain reports this as chronic for greater than 17 years; occurred s/p hysterectomy CT imagins of abdomen without acute process --cholelithiasis without cholecystitis 11/14--continuing to endorse abdominal pain and bilateral lower abdomen, pain is mild and tolerable and improves with ambulation. She reports she has had chronic abdominal pain for greater than 17 years S/P hysterectomy; reporting that her sock liner informed her that he accidentally cut a nerve during the procedure. Additionally, she is reporting constipation on admission but has reported that her bowel movements are more regular with the addition of MiraLAX and Colace as well as when necessary Dulcolax. Given negative CT imaging continue to closely monitor. 11/15--Abdominal pain persists. Also having c/o vaginal, rectal and coccyx pain. CT without acute abdominal process. Consider Dx of pudendal neuralgia; Can f/u outpatient with PCP. continue stool softeners-- (2) Elevated WBC count Current Visit: No Status: Acute Assessment and Plan: presents with leukocytosis Review of prior history reveals chronically elevated WBC Repeat CBC without Diff pending No obvious source of infection h/o [place] stage 0 CLL; follow outpatient with oncology (3) Nausea Current Visit: Yes Status: Resolved (4) Constipation Current Visit: Yes Status: Resolved (5) Dizziness Current Visit: Yes Status: Resolved (6) HTN (hypertension) Current Visit: Yes Status: Acute Assessment and Plan: Per history BP stable (7) GERD (gastroesophageal reflux disease) Current Visit: Yes Status: Acute (8) Chronic low back pain Current Visit: Yes Status: Acute Assessment and Plan: Continue Neurontin and PRN [place] (9) Anxiety Current Visit: Yes Status: Acute Assessment and Plan: Continue anxiolytics (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 Assessment and Plan: as above (11) Debility Current Visit: Yes Status: Acute Assessment and Plan: Plan for home health with PT/[place] at [place] Prophylaxis: EPCD - Time Spent with Patient Total time spent is greater than 50% in coordination of care (as documented) at patient's floor/unit and/or counseling patient: less than 15 minutes Plan of Care Discussed with: patient Internal Medicine: Result - Labs CBC & Chem 7: 11/14/17 04:27 11/14/17 04:27 Consult Discharge Plan - Plan Additional Instructions: Call [facility] [place] when you get home to have them deliver your wheeled walker. . Referrals: Pop Matson MD [Primary Care Provider] - (Requested a follow up appointment in 7-10 days. ) (1) Abdominal pain Qualifiers: Abdominal location: lower abdomen, unspecified Qualified Code(s): R10.30 - Lower abdominal pain, unspecified (2) Elevated WBC count Qualifiers: Leukocytosis type: lymphocytosis Qualified Code(s): D72.820 - Lymphocytosis ( symptomatic) (4) Constipation Qualifiers: Constipation type: unspecified constipation type Qualified Code(s): K59.00 - Constipation, unspecified (6) HTN (hypertension) Qualifiers: Hypertension type: essential hypertension Qualified Code(s): I10 - Essential (primary) hypertension (7) GERD (gastroesophageal reflux disease) Qualifiers: Esophagitis presence: esophagitis presence not specified Qualified Code(s): K21.9 - Gastro-esophageal reflux disease without esophagitis (8) Chronic low back pain Qualifiers: Back pain laterality: midline Sciatica presence: with sciatica Sciatica laterality: bilateral sciatica Qualified Code(s): M54.41 - Lumbago with sciatica, right side; M54.42 - Lumbago with sciatica, left side; G89.29 - Other chronic pain
[2017-11-15 09:52] LABS: Hematocrit 41.8 % (35.3-44.9); Mean Corpuscular HGB Conc 31.8 g/dL (31.6-35.5); Mean Corpuscular Volume 97.4 fL (83.0-100.0); Mean Platelet Volume 10.2 fL (9.4-12.4); Platelet Count 183 K/mcL (140-400); Red Blood Count 4.29 M/mcL (3.82-4.97); Red Cell Distribution Width 13.8 % (11.5-14.5)
[2017-11-15 10:02] LABS: Hemoglobin 13.3 g/dL (11.5-15.4)
[2017-11-15] MEDS: tiZANidine 4 MG TABLET PO SCH (20:00)
[2017-11-16 05:44] LABS: Hematocrit 33.9 % (35.3-44.9); Mean Corpuscular HGB Conc 32.7 g/dL (31.6-35.5); Mean Corpuscular Hemoglobin 31.3 pg (28.0-33.3); Mean Corpuscular Volume 95.5 fL (83.0-100.0); Platelet Count 138 K/mcL (140-400); Red Blood Count 3.55 M/mcL (3.82-4.97); Red Cell Distribution Width 13.6 % (11.5-14.5)
[2017-11-16 07:00] LABS: Hemoglobin 11.1 g/dL (11.5-15.4)
[2017-11-16] MEDS: Gabapentin 400 MG CAPSULE PO SCH ×2 (08:13→14:45)
[2017-11-16] MEDS: *HR* LORazepam 1 MG TABLET PO SCH (08:14)
[2017-11-16 11:23] VITALS: BP 150/89
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
--- NOTE | 2017-11-16 13:52 | Physician Discharge Referral ---
Home Health/Hosp Referral Info Transfer to: Home Health Attending Provider: SANDRA home health Provider in Charge Post Discharge: PCP - Diagnosis (1) Abdominal pain Priority: Primary Status: Acute (2) Elevated WBC count Priority: Secondary Status: Acute (3) Nausea Priority: Secondary Status: Resolved (4) Constipation Priority: Secondary Status: Resolved (5) Dizziness Priority: Secondary Status: Resolved (6) HTN (hypertension) Priority: Secondary Status: Acute (7) GERD (gastroesophageal reflux disease) Priority: Secondary Status: Acute (8) Chronic low back pain Priority: Secondary Status: Acute (9) Anxiety Priority: Secondary Status: Acute (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 For more information, call the [place] Tobacco Quit Line at 1-048-UUJF-NOW. - Diet/Nutrition Diet/Nutrition Orders: No Added Salt (ANCA), Cardiac, No Concentrated Sweets - Activity Activity Orders: Walker (ambulate with walker only) - Services Needed Following services are medically necessary services: Nursing, Home Health Aide, Physical Therapy, Occupational Therapy - Transfer Medications Prescriptions: LORazepam [Ativan] 0.5 mg PO TID 3 Days #9 tablet Home Medications: Gabapentin [Neurontin] 800 mg PO TID 06/02/15 [History] Atenolol [Tenormin] 25 mg PO DAILY 07/16/15 [History] Calcium Carbonate [Calcium] 2,000 mg PO DAILY 07/16/15 [History] Ergocalciferol (VITAMIN D2) [Vitamin D] 1,000 unit PO DAILY 07/16/15 [History] Multivitamin [Multivitamins] 1 each PO DAILY 07/16/15 [History] Tizanidine HCl [Zanaflex] 0.5 mg PO HS 11/09/16 [History] HYDROcodone/Acet 7.5/325 mg [[place] 7.5-325 mg] 1 tab PO Q6H PRN 01/27/17 [ History] Oxybutynin [Ditropan] 5 mg PO BID 5 Days #10 tablet 11/03/17 [Rx] Citalopram Hydrobromide [Citalopram HBr] 20 mg PO DAILY 11/10/17 [History] DULoxetine [Cymbalta] 20 mg PO DAILY 11/10/17 [History] Omeprazole [PriLOSEC] 20 mg PO DAILY 11/10/17 [History] LORazepam [Ativan] 0.5 mg PO TID 3 Days #9 tablet 11/16/17 [Rx] Allergies/Adverse Reactions: 3 Allergy/AdvReac Type Severity Reaction Status Date / Time No Known Allergies Allergy Verified 11/07/17 21:06 Certification: Further, I certify that my clinical findings support that this patient is homebound (i.e. absences from home require considerable and taxing effort and are for medical reasons or temple services or infrequently or short duration when for other reasons) because: Homebound Reason: Patient requires assistance of a person or device to safely leave home Attestation: My signature below is to certify that this patient is under my care and that I, or nurse practitioner, or a physician's bilingual sales assistant working with me, has a face-to -face encounter with this patient.
== END 2017-11-16 15:15 | disposition home health service (06) | DRG 73 ==
LOC: EMEROOARM 13:13 → 3BNU 13:13 → SUATTDRO 16:24 → 3BNU 17:11
PROVIDERS: ADMIT Internal Medicine; ATTEND Internal Medicine

== ENCOUNTER 2018-01-07 01:28 | Inpatient (IN) ==
--- NOTE | 2018-01-07 02:10 | Emergency Department Note ---
Disposition Clinical Impression: Fall Qualifiers: Encounter type: initial encounter Qualified Code(s): W19.XXXA - Unspecified fall, initial encounter Femoral neck fracture Qualifiers: Encounter type: initial encounter Fracture type: closed Laterality: left Qualified Code(s): S72.002A - Fracture of unspecified part of neck of left femur, initial encounter for closed fracture Disposition: Admitted As Inpatient Condition: Good Referrals: Pop Matson MD [Primary Care Provider] - Time of Disposition: 05:03 General Adult HPI - General Stated complaint: fall, hip pain Time Seen by Provider: 01/07/18 01:30 Source: patient, EMS Mode of arrival: EMS Limitations: no limitations Nursing Notes Reviewed: Yes Vital Signs Reviewed: Yes - History of Present Illness HPI Narrative: Patient is an 87-year-old female that presents emergency department after a fall. Patient states that she is having left hip pain. Patient states that she fell this evening when she was walking down the stairs and was dark and slipped and landed on a slate floor. Patient states that she is unsure if she lost consciousness. Patient states that she did lay on the floor for somewhat between 15 and 30 minutes due to being unable to get herself up. Patient states that she did slide herself to the counter where she could get a phone that she could call for help. Patient states that she thinks she may have hit her head. Patient states that she just feels like she has pain everywhere. Pain Scale: 8 - Related Data Home Medications Medication Instructions Recorded Confirmed Gabapentin [Neurontin] 800 mg PO TID 06/02/15 12/05/17 Atenolol [Tenormin] 25 mg PO DAILY 07/16/15 12/05/17 Calcium Carbonate [Calcium] 2,000 mg PO DAILY 07/16/15 12/05/17 Ergocalciferol (VITAMIN D2) 1,000 unit PO DAILY 07/16/15 12/05/17 [Vitamin D] Multivitamin [Multivitamins] 1 each PO DAILY 07/16/15 12/05/17 Tizanidine HCl [Zanaflex] 0.5 mg PO HS 11/09/16 12/05/17 HYDROcodone/Acet 7.5/325 mg [[place] 1 tab PO Q6H PRN 01/27/17 12/05/17 7.5-325 mg] Citalopram Hydrobromide 20 mg PO DAILY 11/10/17 12/05/17 [Citalopram HBr] Omeprazole [PriLOSEC] 20 mg PO HS 11/10/17 12/05/17 Previous Rx's Medication Instructions Recorded Oxybutynin [Ditropan] 5 mg PO BID 5 Days #10 tablet 11/03/17 Allergies Allergy/AdvReac Type Severity Reaction Status Date / Time No Known Allergies Allergy Verified 11/07/17 21:06 All systems ED: reviewed and negative except as stated. Cardiovascular: Denies: chest pain Respiratory: Denies: dyspnea Gastrointestinal: Reports: abdominal pain Musculoskeletal: Reports: other (Left hip and thigh pain ) Past Medical History - Past Medical History Medical history: Reports: GERD, hyperlipidemia, osteoporosis Surgical history: Reports: appendectomy, cataract, hysterectomy Psychiatric history: Reports: anxiety FIELD CLINICAL ENGINEER history: Reports: no FIELD CLINICAL ENGINEER history - Social History Smoking Status: Never smoker Smokeless Tobacco Status: No Alcohol use: Reports: none Drug use: Reports: none Physical Exam - General Limitations: no limitations General appearance: alert, in no apparent distress - Head Head exam: atraumatic, normocephalic - Eye Eye exam: Present: normal appearance, EOMI - Neck Neck exam: Present: normal inspection, full ROM, trachea midline - Respiratory Respiratory exam: Present: normal lung sounds bilaterally. Absent: respiratory distress, wheezes - Cardiovascular Cardiovascular exam: Present: regular rate, normal rhythm, +S1, +S2 - Abdominal Exam Abdominal exam: Present: soft, tenderness, normal bowel sounds Abdominal tenderness: Present: diffuse, mild - Extremities Exam Extremities exam: Present: normal inspection, tenderness (Left hip and left thigh pain). Absent: full ROM (Due to pain ) - Neurological Exam Neurological exam: Present: alert, oriented X3 - Psychiatric Psychiatric exam: Present: normal affect, normal mood - Skin Skin exam: Present: warm, dry, intact Course Vital Signs Temperature 97.6 F 01/07/18 01:49 Pulse Rate 60 01/07/18 01:49 Respiratory Rate 18 01/07/18 01:49 Blood Pressure 139/91 01/07/18 01:49 O2 Sat by Pulse Oximetry 96 01/07/18 01:49 Temperature 97.6 F 01/07/18 01:49 Pulse Rate 60 01/07/18 01:49 Respiratory Rate 18 01/07/18 01:49 Blood Pressure 139/91 01/07/18 01:49 O2 Sat by Pulse Oximetry 96 01/07/18 01:49 Oxygen Delivery Oxygen Delivery Room Air Medical Decision Making - MDM Narrative Medical decision making narrative: Due the patient reporting a fall and is unclear whether or not there was loss of consciousness and the patient reporting left hip and thigh pain we will obtain CT of the head, cervical spine, abdomen and pelvis and a x-ray of the left femur. Patient was found to have a left femoral neck fracture that was impacted but nondisplaced. Patient will require admission to the hospital. Based on these findings laboratory testing was added due to the patient requiring admission. We will obtain a CBC, BMP and a PTT/INR. Patient will be admitted to the medical service with a consult to orthopedics. Lab for testing was sarah kebede which showed a chronically elevated white blood cell count. The remainder of her laboratory testing is relatively unremarkable. Patient will need to be admitted to the hospital this time for further evaluation and management of her left hip fracture. I called and spoke with the admitting hospitalist Dr. Duarte and he is except the patient to their service. Patient be admitted to the hospital this time for further evaluation and management. - Medical Records Medical records reviewed: Yes I reviewed the patient's medical records. - Lab Data Lab results reviewed: Yes I reviewed the patient's lab results. Result diagrams: 01/07/18 04:28 01/07/18 04:28 Lab Results 01/07/18 01/07/18 01/07/18 Range/Units 04:28 04:28 04:28 WBC 19.2 H (4.3-11.1) K/mcL RBC 3.65 L (3.82-4.97) M/mcL Hgb 11.6 (11.5-15.4) g/dL Hct 34.3 L (35.3-44.9) % MCV 94.0 (83.0-100.0) fL MCH 31.8 (28.0-33.3) pg MCHC 33.8 (31.6-35.5) g/dL RDW 13.3 (11.5-14.5) % Plt Count 129 L (140-400) K/mcL MPV 9.5 (9.4-12.4) fL Immature Gran % 0.3 (0-4) % Seg Neutrophils % 34.4 % Lymphocytes % 61.6 % Monocytes % 3.0 % Eosinophils % 0.4 % Basophils % 0.3 % Neutrophils # 6.6 (1.6-8.9) K/mcL Lymphocytes # 11.8 H (0.6-4.6) K/mcL Monocytes # 0.6 (0.0-1.3) K/mcL Eosinophils # 0.1 (0.0-0.6) K/mcL Basophils # 0.1 (0.0-0.2) K/mcL Reactive Lymphocytes Present A (Not Present) Platelet Estimate Normal (Normal) PT 12.1 (9.4-12.1) Seconds INR 1.1 Sodium 138 (136-145) mEq/L Potassium 4.1 (3.5-5.1) mEq/L Chloride 106 (98-107) mEq/L Carbon Dioxide 27 (23-29) mEq/L BUN 15 (8-23) mg/dL Creatinine 1.02 (0.60-1.20) mg/dL Est GFR ( Amer) > 60 (> 60) Est GFR (Non-Af Amer) 52 L (> 60) BUN/Creatinine Ratio 15 (6-26) Glucose 99 (70-105) mg/dL Calculated Osmolality 287 (280-300) Calcium 9.6 (8.6-10.3) mg/dL - Radiology Data Radiology results reviewed: Yes I reviewed the patient's radiology results.
[2018-01-07] MEDS ORDERED: *HR* FentaNYL (PF) 100 MCG/2 ML VIAL IVP ONE (04:19)
[2018-01-07 04:42] LABS: Basophils # 0.1 K/mcL (0.0-0.2); Basophils % 0.3 %; Eosinophils # 0.1 K/mcL (0.0-0.6); Eosinophils % 0.4 %; Hematocrit 34.3 % (35.3-44.9); Hemoglobin 11.6 g/dL (11.5-15.4); Immature Granulocytes % 0.3 % (0-4); Lymphocytes # 11.8 K/mcL (0.6-4.6); Lymphocytes % 61.6 %; Mean Corpuscular HGB Conc 33.8 g/dL (31.6-35.5); Mean Corpuscular Hemoglobin 31.8 pg (28.0-33.3); Mean Platelet Volume 9.5 fL (9.4-12.4); Monocytes # 0.6 K/mcL (0.0-1.3); Neutrophils # 6.6 K/mcL (1.6-8.9); Platelet Count 129 K/mcL (140-400); Red Blood Count 3.65 M/mcL (3.82-4.97); Red Cell Distribution Width 13.3 % (11.5-14.5); Segmented Neutrophils % 34.4 %
--- NOTE | 2018-01-07 04:42 | Emergency Department Note ---
Disposition Clinical Impression: Fall Qualifiers: Encounter type: initial encounter Qualified Code(s): W19.XXXA - Unspecified fall, initial encounter Femoral neck fracture Qualifiers: Encounter type: initial encounter Fracture type: closed Laterality: left Qualified Code(s): S72.002A - Fracture of unspecified part of neck of left femur, initial encounter for closed fracture Disposition: Admitted As Inpatient Condition: Good General Adult HPI - General Chief complaint: ED Fall Stated complaint: fall, hip pain Time Seen by Provider: 01/07/18 01:30 Source: patient, EMS Mode of arrival: EMS Limitations: no limitations Nursing Notes Reviewed: Yes Vital Signs Reviewed: Yes - History of Present Illness Pain Scale: 8 - Related Data Home Medications Medication Instructions Recorded Confirmed Gabapentin [Neurontin] 800 mg PO TID 06/02/15 12/05/17 Atenolol [Tenormin] 25 mg PO DAILY 07/16/15 12/05/17 Calcium Carbonate [Calcium] 2,000 mg PO DAILY 07/16/15 12/05/17 Ergocalciferol (VITAMIN D2) 1,000 unit PO DAILY 07/16/15 12/05/17 [Vitamin D] Multivitamin [Multivitamins] 1 each PO DAILY 07/16/15 12/05/17 Tizanidine HCl [Zanaflex] 0.5 mg PO HS 11/09/16 12/05/17 HYDROcodone/Acet 7.5/325 mg [[place] 1 tab PO Q6H PRN 01/27/17 12/05/17 7.5-325 mg] Citalopram Hydrobromide 20 mg PO DAILY 11/10/17 12/05/17 [Citalopram HBr] Omeprazole [PriLOSEC] 20 mg PO HS 11/10/17 12/05/17 Previous Rx's Medication Instructions Recorded Oxybutynin [Ditropan] 5 mg PO BID 5 Days #10 tablet 11/03/17 Allergies Allergy/AdvReac Type Severity Reaction Status Date / Time No Known Allergies Allergy Verified 11/07/17 21:06 Cardiovascular: Denies: chest pain Respiratory: Denies: dyspnea Gastrointestinal: Reports: abdominal pain Musculoskeletal: Reports: other (Left hip and thigh pain ) Past Medical History - Past Medical History Medical history: Reports: GERD, hyperlipidemia, osteoporosis Surgical history: Reports: appendectomy, cataract, hysterectomy Psychiatric history: Reports: anxiety [employer]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 - Social History Smoking Status: Never smoker Smokeless Tobacco Status: No Alcohol use: Reports: none Drug use: Reports: none Physical Exam - General Limitations: no limitations General appearance: alert, in no apparent distress Course Vital Signs Temperature 97.6 F 01/07/18 01:49 Pulse Rate 60 01/07/18 01:49 Respiratory Rate 18 01/07/18 01:49 Blood Pressure 139/91 01/07/18 01:49 O2 Sat by Pulse Oximetry 96 01/07/18 01:49 Temperature 97.6 F 01/07/18 01:49 Pulse Rate 60 01/07/18 01:49 Respiratory Rate 18 01/07/18 01:49 Blood Pressure 139/91 01/07/18 01:49 O2 Sat by Pulse Oximetry 96 01/07/18 01:49 Oxygen Delivery Oxygen Delivery Room Air Medical Decision Making - Medical Records Medical records reviewed: Yes I reviewed the patient's medical records. - Lab Data Lab results reviewed: Yes I reviewed the patient's lab results. Result diagrams: 01/07/18 04:28 01/07/18 04:28 Lab Results 01/07/18 01/07/18 01/07/18 Range/Units 04:28 04:28 04:28 WBC 19.2 H (4.3-11.1) K/mcL RBC 3.65 L (3.82-4.97) M/mcL Hgb 11.6 (11.5-15.4) g/dL Hct 34.3 L (35.3-44.9) % MCV 94.0 (83.0-100.0) fL MCH 31.8 (28.0-33.3) pg MCHC 33.8 (31.6-35.5) g/dL RDW 13.3 (11.5-14.5) % Plt Count 129 L (140-400) K/mcL MPV 9.5 (9.4-12.4) fL Immature Gran % 0.3 (0-4) % Seg Neutrophils % 34.4 % Lymphocytes % 61.6 % Monocytes % 3.0 % Eosinophils % 0.4 % Basophils % 0.3 % Neutrophils # 6.6 (1.6-8.9) K/mcL Lymphocytes # 11.8 H (0.6-4.6) K/mcL Monocytes # 0.6 (0.0-1.3) K/mcL Eosinophils # 0.1 (0.0-0.6) K/mcL Basophils # 0.1 (0.0-0.2) K/mcL Reactive Lymphocytes Present A (Not Present) Platelet Estimate Normal (Normal) PT 12.1 (9.4-12.1) Seconds INR 1.1 Sodium 138 (136-145) mEq/L Potassium 4.1 (3.5-5.1) mEq/L Chloride 106 (98-107) mEq/L Carbon Dioxide 27 (23-29) mEq/L BUN 15 (8-23) mg/dL Creatinine 1.02 (0.60-1.20) mg/dL Est GFR ( Amer) > 60 (> 60) Est GFR (Non-Af Amer) 52 L (> 60) BUN/Creatinine Ratio 15 (6-26) Glucose 99 (70-105) mg/dL Calculated Osmolality 287 (280-300) Calcium 9.6 (8.6-10.3) mg/dL - Radiology Data Radiology results reviewed: Yes I reviewed the patient's radiology results. Abdomen/Pelvis CT 01/07/18 01:55 IMPRESSION: Nondisplaced impacted left femoral neck fracture. Right hip and bony pelvis are intact. Cholelithiasis. Diverticulosis. Large colonic stool volume without obstruction-query constipation. Infrarenal abdominal aortic aneurysms measuring 2.3 cm proximally and 4.0 cm along the more inferior aneurysmal segment, unchanged when measured in similar fashion. Recommend follow-up imaging on a yearly basis. Vascular consultation also recommended. (Reference: J Vasc Surg 2009 Nov;50(4 Suppl):S2-49) D/ / Kamlesh Hendrix / Kamlesh Hendrix Interpreting Provider: Kamlesh Hendrix Cervical Spine CT 01/07/18 01:55 IMPRESSION: No acute abnormality of the cervical spine. Cervical spondylosis and facet arthrosis with unchanged degenerative grade 1 anterolisthesis levels, as detailed above. D/ / Kamlesh Hendrix / Kamlesh Hendrix Interpreting Provider: Kamlesh Hendrix Femur X-Ray 01/07/18 01:55 IMPRESSION: Acute impacted fracture of the left femoral neck. D/ / Brenda Sosa MD / Brenda Sosa MD Interpreting Provider: Brenda Sosa MD Head CT 01/07/18 01:55 IMPRESSION: No acute intracranial abnormality. D/ / Brenda Sosa MD / Brenda Sosa MD Interpreting Provider: Brenda Sosa MD Attestation Statement - Attestation Attestation: IJose Alberto MD, personally evaluated this patient and discussed their management with the resident physician. I reviewed the resident's note and agree with the documented findings, medical decision making, and plan of care. Patient is an 87-year-old female who presents to the emergency department by EMS after she had a fall at home. Patient states she was going down some stairs in the dark and she missed the bottom step and fell forward onto her left side. She complains of pain primarily in her left hip. She was unable to get up from the floor and had to crawl to a phone. She states she did hit her head and thinks that she had a loss of consciousness. She complains of neck pain. She also complains of abdominal pain. On examination patient is a well-developed thin elderly female in no acute distress. She is alert and oriented 3. There is no cyanosis or diaphoresis. Head is atraumatic. No scalp hematomas noted. Neck is supple with diffuse posterior tenderness on light palpation. Breath sounds are equal bilaterally. Heart regular. Abdomen soft with present bowel sounds. There is moderate diffuse mid and lower abdominal tenderness. Pelvis is stable to palpation and compression. There is tenderness over the left hip and pain with movement of the left leg. No obvious deformity. Neurovascular function is intact distally. CT of the head and neck was negative for acute abnormality. Also CT the abdomen and pelvis was negative for acute abnormality other than the impacted left hip fracture. X-ray of the left femur showed an impacted femoral neck fracture. Labs reviewed. The hospitalist, Dr. Vo, was consulted and accepted admission of the patient.
[2018-01-07 04:52] LABS: INR 1.1; Prothrombin Time 12.1 Seconds (9.4-12.1)
[2018-01-07 04:55] LABS: Platelet Estimate Normal (Normal); Reactive Lymphocytes Present (Not Present)
[2018-01-07 04:59] LABS: BUN/Creatinine Ratio 15 (6-26); Blood Urea Nitrogen 15 mg/dL (8-23); Calcium 9.6 mg/dL (8.6-10.3); Carbon Dioxide 27 mEq/L (23-29); Chloride 106 mEq/L (98-107); Glucose 99 mg/dL (70-105); Osmolality,Calculated 287 (280-300); Potassium 4.1 mEq/L (3.5-5.1); Sodium 138 mEq/L (136-145); eGFR For Non-African Americans 52 (> 60)
[2018-01-07] MEDS ORDERED: Ondansetron 4 MG/2 ML VIAL IVP PRN ×2 (05:48→13:23)
[2018-01-07] MEDS ORDERED: Naloxone 0.4 MG/ML INJ IVP PRN (05:48)
[2018-01-07] MEDS ORDERED: OXYCODONE Oral CONC 10 MG/0.5 ML ORAL.SYG SL PRN (05:48)
--- NOTE | 2018-01-07 05:48 | Internal Med History&Physical ---
<Bill Martinez A - Last Filed: 01/07/18 06:40> Date of Encounter: 01/07/18 Time of Encounter: 05:48 Internal Medicine - H&P: HPI Chief complaint: left hip pain Admitted From: Home Plans for Post Hospital Care: Home History of present illness: Ms. Chong is a 87 year old female with past medical history of GERD, osteoporosis, and HLD. She presented to the ED today for left hip pain after a fall at home. She states she slipped on the hardwood floors and fell down the stairs. Unknown loss of consciousness, however pt states she did remain on the floor for a short period of time until she was able to slide to reach a phone. She does endorse striking her head during the fall. Workup in the ED revealed an impacted left femoral neck fracture. Head CT was normal. C-spine CT was negative for acute abnormalities. CT abdomen/pelvis revealed the aforementioned hip fracture, as well as 2 infrarenal abdominal aortic aneurysms. During the encounter with this provider, the pt was resting in bed. States her pain is somewhat controlled with medication. She denies any headache, numbness, tingling, chest pain, shortness of breath, nausea, or vomiting. She does admit to some abdominal pain which radiates from her left hip. Past Med Surg Social Fam HX - Past Medical History Medical history: GERD, hyperlipidemia, osteoporosis Additional medical history: LL3 leukemia Psychiatric history: anxiety - Past Surgical History Surgical History: appendectomy, cataract, hysterectomy Additional surgical history: Back surgery. PRE-CANCER ON FACE REMOVED. COLONOSCOPY X3, EGD. CAM CATARACT REMOVAL. 08/18/15 COLPOCLEISIS/VAGINAL CLOSURE @[facility]/DR WILL - Social History Smoking Status: Never smoker Smokeless Tobacco Status: No Alcohol use: none Drug use: none - Family History Mother Adopted: No Living Status: Hx Family Cardiac Disorders: Yes ([place]) Internal Medicine - H&P: Meds RX: Gabapentin [Neurontin] 800 mg PO TID 06/02/15 [History] RX: Atenolol [Tenormin] 25 mg PO DAILY 07/16/15 [History] RX: Calcium Carbonate [Calcium] 2,000 mg PO DAILY 07/16/15 [History] RX: Ergocalciferol (VITAMIN D2) [Vitamin D] 1,000 unit PO DAILY 07/16/15 [History] RX: Multivitamin [Multivitamins] 1 each PO DAILY 07/16/15 [History] RX: Tizanidine HCl [Zanaflex] 0.5 mg PO HS 11/09/16 [History] RX: HYDROcodone/Acet 7.5/325 mg [[place] 7.5-325 mg] 1 tab PO Q6H PRN 01/27/17 [History] RX: Oxybutynin [Ditropan] 5 mg PO BID 5 Days #10 tablet 11/03/17 [Rx] RX: Citalopram Hydrobromide [Citalopram HBr] 20 mg PO DAILY 11/10/17 [History] RX: Omeprazole [PriLOSEC] 20 mg PO HS 11/10/17 [History] Allergy/AdvReac Type Severity Reaction Status Date / Time No Known Allergies Allergy Verified 11/07/17 21:06 All Systems PM: A 10-system review of systems was performed and is negative for pertinent findings except as documented above in the HPI. - Constitutional Constitutional: no chills, no fatigue, no fever(s), no falls - EENT Eyes: no blurry vision, no change in vision Nose, mouth and throat: no nasal congestion, no sinus pain, no sinus pressure, no sore throat - Cardiovascular Cardiovascular ROS IM: no chest pain, no diaphoresis, no dyspnea, no dyspnea on exertion, no lightheadedness - Respiratory Respiratory: no cough, no dyspnea, no dyspnea on exertion, no wheezing, no chest congestion, no excessive phlegm production - Gastrointestinal Gastrointestinal: no abdominal pain, no nausea, no vomiting - Genitourinary Genitourinary: no dysuria, no hematuria, no urinary frequency, no urinary hesitancy, no urinary incontinence - Musculoskeletal Musculoskeletal ROS IM: no numbness, no tingling - Integumentary Integumentary IM: no jaundice - Neurological Neurological ROS: no dizziness, no frequent falls, no numbness, no tingling, no vertigo, no weakness - Hematologic/Lymphatic Hematologic/Lymphatic: no easy bleeding, no easy bruising - Constitutional Vitals: Temp Pulse Resp BP Pulse Ox 97.6 F 64 16 129/67 96 01/07/18 01:49 01/07/18 05:20 01/07/18 05:20 01/07/18 05:20 01/07/18 05:20 General appearance: Present: mild distress, A&O X 3, pleasant, answers questions appropriately Exam: General: well nourished, well developed female in mild distress Head: normocephalic and atraumatic Eyes: PERRL, EOMI, sclera anicteric, conjunctiva pink Neck: supple, trachea midline Lungs: CTA bilaterally, non-labored breathing. No wheezes, rales, or rhonchi Heart: RRR +s1 +s2. No murmurs, clicks, or rubs. GI: abdomen soft, TTP near the left hip, non-distended. normoactive bowel sounds Extremities: warm, pulses palpable and symmetrical. no cyanosis or edema Neuro: A&Ox3. No focal deficits. Sensation intact. Skin: warm, dry, intact Internal Med - H&P Results - Labs CBC & Chem 7: 01/07/18 04:28 01/07/18 04:28 Labs: Short CBC 01/07/18 Range/Units 04:28 WBC 19.2 H (4.3-11.1) K/mcL Hgb 11.6 (11.5-15.4) g/dL Hct 34.3 L (35.3-44.9) % Plt Count 129 L (140-400) K/mcL Neutrophils # 6.6 (1.6-8.9) K/mcL BMP 01/07/18 04:28 Sodium 138 Potassium 4.1 Chloride 106 Carbon Dioxide 27 BUN 15 Creatinine 1.02 Glucose 99 Calcium 9.6 - Impressions ITS Impressions Abdomen/Pelvis CT 01/07/18 01:55 IMPRESSION: Nondisplaced impacted left femoral neck fracture. Right hip and bony pelvis are intact. Cholelithiasis. Diverticulosis. Large colonic stool volume without obstruction-query constipation. Infrarenal abdominal aortic aneurysms measuring 2.3 cm proximally and 4.0 cm along the more inferior aneurysmal segment, unchanged when measured in similar fashion. Recommend follow-up imaging on a yearly basis. Vascular consultation also recommended. (Reference: J Vasc Surg 2009 Nov;50(4 Suppl):S2-49) D/ / Kamlesh Hendrix / Kamlesh Hendrix Interpreting Provider: Kamlesh Hendrix Cervical Spine CT 01/07/18 01:55 IMPRESSION: No acute abnormality of the cervical spine. Cervical spondylosis and facet arthrosis with unchanged degenerative grade 1 anterolisthesis levels, as detailed above. D/ / Kamlesh Hendrix / Kamlesh Hendrix Interpreting Provider: Kamlesh Hendrix Femur X-Ray 01/07/18 01:55 IMPRESSION: Acute impacted fracture of the left femoral neck. D/ / Brenda Sosa MD / Brenda Sosa MD Interpreting Provider: Brenda Sosa MD Head CT 01/07/18 01:55 IMPRESSION: No acute intracranial abnormality. D/ / Brenda Sosa MD / Brenda Sosa MD Interpreting Provider: Brenda Sosa MD - Assessment and plan (1) AAA (abdominal aortic aneurysm) Current Visit: Yes Status: Chronic Assessment and plan: Hx of 2 infrarenal AAAs Follows with Dr. Ellington outpatient H&H stable Abdominal pain related to hip fracture Qualifiers: Presence of rupture: without rupture Qualified Code(s): I71.4 - Abdominal aortic aneurysm, without rupture (2) GERD (gastroesophageal reflux disease) Current Visit: Yes Status: Acute Assessment and plan: hx of GERD Resume home meds when cleared by surgery Qualifiers: Esophagitis presence: esophagitis presence not specified Qualified Code(s): K21.9 - Gastro-esophageal reflux disease without esophagitis (3) CLL (chronic lymphocytic leukemia) Current Visit: Yes Status: Chronic Assessment and plan: Pt has hx of stage 0 CLL, and chronically elevated WBC Remains elevated at 19.2 today (4) Femoral neck fracture Current Visit: Yes Status: Acute Assessment and plan: Nondisplaced impacted left femoral neck fracture as per CT PRN pain meds Ortho consulted - await recs Qualifiers: Encounter type: initial encounter Fracture type: closed Laterality: left Qualified Code(s): S72.002A - Fracture of unspecified part of neck of left femur, initial encounter for closed fracture - Time Spent With Patient Total time spent is greater than 50% in coordination of care (as documented) at patient's floor/unit and/or counseling patient: Samantha Cerda - Last Filed: 01/07/18 07:00> Date of Encounter: 01/07/18 Internal Medicine - H&P: HPI History of present illness: Ms. Chong is a 87 year old female All Systems PM: A 10-system review of systems was performed and is negative for pertinent findings except as documented above in the HPI. - Constitutional Vitals: Temp Pulse Resp BP Pulse Ox 98.1 F 62 18 123/71 97 01/07/18 06:29 01/07/18 06:29 01/07/18 06:29 01/07/18 06:29 01/07/18 06:29 Internal Med - H&P Results - Labs CBC & Chem 7: 01/07/18 04:28 01/07/18 04:28 Labs: Short CBC 01/07/18 Range/Units 04:28 WBC 19.2 H (4.3-11.1) K/mcL Hgb 11.6 (11.5-15.4) g/dL Hct 34.3 L (35.3-44.9) % Plt Count 129 L (140-400) K/mcL Neutrophils # 6.6 (1.6-8.9) K/mcL BMP 01/07/18 04:28 Sodium 138 Potassium 4.1 Chloride 106 Carbon Dioxide 27 BUN 15 Creatinine 1.02 Glucose 99 Calcium 9.6 - Impressions ITS Impressions Abdomen/Pelvis CT 01/07/18 01:55 IMPRESSION: Nondisplaced impacted left femoral neck fracture. Right hip and bony pelvis are intact. Cholelithiasis. Diverticulosis. Large colonic stool volume without obstruction-query constipation. Infrarenal abdominal aortic aneurysms measuring 2.3 cm proximally and 4.0 cm along the more inferior aneurysmal segment, unchanged when measured in similar fashion. Recommend follow-up imaging on a yearly basis. Vascular consultation also recommended. (Reference: J Vasc Surg 2009 Oct;50(4 Suppl):S2-49) D/ / Kamlesh Hendrix / Kamlesh Hendrix Interpreting Provider: Kamlesh Hendrix Cervical Spine CT 01/07/18 01:55 IMPRESSION: No acute abnormality of the cervical spine. Cervical spondylosis and facet arthrosis with unchanged degenerative grade 1 anterolisthesis levels, as detailed above. D/ / Kamlesh Hendrix / Kamlesh Hendrix Interpreting Provider: Kamlesh Hendrix Femur X-Ray 01/07/18 01:55 IMPRESSION: Acute impacted fracture of the left femoral neck. D/ / Brenda Sosa MD / Brenda Sosa MD Interpreting Provider: Brenda Sosa MD Head CT 01/07/18 01:55 IMPRESSION: No acute intracranial abnormality. D/ / Brenda Sosa MD / Brenda Sosa MD Interpreting Provider: Brenda Sosa MD - Assessment and plan (1) CLL (chronic lymphocytic leukemia) Current Visit: Yes Status: Chronic (2) AAA (abdominal aortic aneurysm) Current Visit: Yes Status: Chronic Qualifiers: Presence of rupture: without rupture Qualified Code(s): I71.4 - Abdominal aortic aneurysm, without rupture (3) GERD (gastroesophageal reflux disease) Current Visit: Yes Status: Acute Qualifiers: Esophagitis presence: esophagitis presence not specified Qualified Code(s): K21.9 - Gastro-esophageal reflux disease without esophagitis (4) Femoral neck fracture Current Visit: Yes Status: Acute Qualifiers: Encounter type: initial encounter Fracture type: closed Laterality: left Qualified Code(s): S72.002A - Fracture of unspecified part of neck of left femur, initial encounter for closed fracture - Time Spent With Patient Total time spent is greater than 50% in coordination of care (as documented) at patient's floor/unit and/or counseling patient: - Attending Attestation I performed a history and physical exam of the patient and discussed management with the resident. I reviewed the resident's note and agree with the documented findings and plan of care. Leyla Chong is an 87-year-old woman with a history of BLANCAS stage 0 CLL undergoing observation by oncology who was brought to the emergency department by EMS after she had a traumatic fall at home. She states that she was running down the stairs with the light off, missed the bottom step and fell forward onto her left side. She was unable to get up from the floor and had to crawl to a phone. There is a question as to whether she lost consciousness at any point in time after the fall. She complains of pain primarily in her left hip. On physical examination she is a well-developed elderly woman who appears younger than her stated age lying in bed in no acute distress. She is alert and oriented 3. Head is atraumatic. No scalp hematomas noted. Neck is supple. Breath sounds are equal bilaterally. Heart regular. Abdomen soft and non-tender. Pelvis is stable to palpation and compression. There is tenderness over the left hip and pain with movement of the left leg. No obvious deformity. Neurovascular function is intact distally. Psych affect is appropriate. CT of the head and neck was negative for acute abnormality. Also CT the abdomen and pelvis was negative for acute abnormality other than the impacted left hip fracture. X-ray of the left femur showed an impacted femoral neck fracture. Labs reviewed showed an elevated leukocyte count that is consistent with her history of CLL but otherwise other parameters are within normal limits. We shall provide pain control and await orthopedics consultation for therapeutic options. Keep NPO for now with maintenance fluids to run. Resume home medications once cleared for oral intake. MIMI DURAN.
[2018-01-07] MEDS ORDERED: D5% in Lactated Ringers 1,000 ML IVC SCH (06:30)
[2018-01-07] MEDS: OXYCODONE Oral CONC 10 MG/0.5 ML ORAL.SYG SL PRN ×5 (06:53→23:28)
[2018-01-07] MEDS: Ketorolac 15 MG/ML VIAL IVP PRN ×2 (10:13→21:24)
--- NOTE | 2018-01-07 11:34 | Orthopedic Consult Note ---
Date of Encounter: 01/07/18 Time of Encounter: 11:31 Assessment and Plan (1) Fracture of femoral neck, left, closed Current Visit: Yes Status: Acute Left hip valgus impacted femoral neck fracture Plan: The patient was scheduled for a left hip pinning. The procedure with expected postoperative management was discussed with the patient. Risks, benefits and alternatives were clearly discussed. Informed consent was obtained. Patient is scheduled for surgery this afternoon. Qualifiers: Encounter type: initial encounter Qualified Code(s): S72.002A - Fracture of unspecified part of neck of left femur, initial encounter for closed fracture History of Present Illness Chief complaint: Left hip pain HPI: Ms. Chong is a 87 year old female who is a community ambulator status post fall was morning sustaining a left hip fracture. The patient was coming down her stairs this morning in the dark and misstepped on the bottom step, falling over. The patient denies dizziness prior to fall. She believes she may have blacked out briefly after the fall. She was on the floor for approximately 40 minutes, until she was able to get to a phone to call for help. Patient states her head no longer hurts her now. Denies chest pain or shortness of breath. Past Med Surg Social Fam HX - Past Medical History Medical history: GERD, hyperlipidemia, osteoporosis Additional medical history: LL3 leukemia Psychiatric history: anxiety - Past Surgical History Surgical History: appendectomy, cataract, hysterectomy Additional surgical history: Back surgery. PRE-CANCER ON FACE REMOVED. COLONOSCOPY X3, EGD. CAM CATARACT REMOVAL. 08/18/15 COLPOCLEISIS/VAGINAL CLOSURE @[facility] W/DR WILL - Social History Smoking Status: Never smoker Smokeless Tobacco Status: No Alcohol use: none Drug use: none Current living situation: Home - Independent Activity Level: Independent ambulation (Lives by herself) - Family History Mother Adopted: No Family Member Ethnicity: Non- Living Status: Age at : 71 Cause of : Heart attack Hx Family Cardiac Disorders: Yes (PA) Medications and Allergies Gabapentin [Neurontin] 800 mg PO TID 06/02/15 [History] Atenolol [Tenormin] 25 mg PO DAILY 07/16/15 [History] Calcium Carbonate [Calcium] 2,000 mg PO DAILY 07/16/15 [History] Ergocalciferol (VITAMIN D2) [Vitamin D] 1,000 unit PO DAILY 07/16/15 [History] Multivitamin [Multivitamins] 1 each PO DAILY 07/16/15 [History] Tizanidine HCl [Zanaflex] 0.5 mg PO HS 11/09/16 [History] HYDROcodone/Acet 7.5/325 mg [[place] 7.5-325 mg] 1 tab PO Q6H PRN 01/27/17 [Histor y] Oxybutynin [Ditropan] 5 mg PO BID 5 Days #10 tablet 11/03/17 [Rx] Citalopram Hydrobromide [Citalopram HBr] 20 mg PO DAILY 11/10/17 [History] Omeprazole [PriLOSEC] 20 mg PO HS 11/10/17 [History] Allergy/AdvReac Type Severity Reaction Status Date / Time No Known Allergies Allergy Verified 11/07/17 21:06 All Systems Reviewed: The remainder of the systems were reviewed and are negative Physical Exam - Constitutional Vitals: Temp Pulse Resp BP Pulse Ox 98.1 F 62 18 123/71 97 01/07/18 06:29 01/07/18 06:29 01/07/18 06:29 01/07/18 06:29 01/07/18 06:29 General appearance IM: A&O X 3, pleasant, no acute distress, thin, answers questions appropriately Exam: Head normocephalic/atraumatic, nontender Neck: Supple and nontender cervical spine Bilateral Upper extremities: Full range of motion of all major joints, no tenderness over joints along bones, mild tenderness at the left wrist - no swelling, no crepitus Pelvis: Stable to the lateral compression Right lower extremity: Full range of motion, pain-free, no tenderness Left lower extremity: Normal alignment, no bruising, positive anterior hip tenderness, pain with passive range of motion of hip, no tenderness at knee or ankle. Full range of motion of ankle. Grossly neurovascularly intact. Results - Labs Result Diagrams: 01/07/18 04:28 01/07/18 04:28 Labs: Abnormal lab results WBC 19.2 K/mcL (4.3-11.1) H 01/07/18 04:28 RBC 3.65 M/mcL (3.82-4.97) L 01/07/18 04:28 Hct 34.3 % (35.3-44.9) L 01/07/18 04:28 Plt Count 129 K/mcL (140-400) L 01/07/18 04:28 Lymphocytes # 11.8 K/mcL (0.6-4.6) H 01/07/18 04:28 Reactive Lymphocytes Present (Not Present) A 01/07/18 04:28 Est GFR (Non-Af Amer) 52 (> 60) L 01/07/18 04:28 H & H 01/07/18 Range/Units 04:28 Hgb 11.6 (11.5-15.4) g/dL Hct 34.3 L (35.3-44.9) % All other labs normal. - Diagnostic results Hip CT: image reviewed (Left hip valgus impacted femoral neck fracture) Consult Discharge Plan - Plan
[2018-01-07] MEDS ORDERED: Dexamethasone 4 MG/ML VIAL ONE (11:55)
[2018-01-07] MEDS ORDERED: Ondansetron 4 MG/2 ML VIAL ONE (11:55)
[2018-01-07] MEDS ORDERED: *HR* Succinylcholine 200 MG/10 ML VIAL IVP ONE (11:55)
[2018-01-07] MEDS ORDERED: Lidocaine -MPF 2% 2 ML VIAL ONE (11:55)
[2018-01-07] MEDS ORDERED: Lidocaine -MPF 4% 5 ML AMPUL ONE (11:56)
[2018-01-07] MEDS ORDERED: *HR* Propofol 200 MG/20 ML VIAL IVP ONE (11:57)
[2018-01-07] MEDS ORDERED: *HR* FentaNYL (PF) 100 MCG/2 ML VIAL ONE (11:57)
--- NOTE | 2018-01-07 12:01 | Anesthesia Evaluation PreOp ---
Date of Encounter: 01/07/18 Time of Encounter: 12:29 - Past History Planned Operation: Left hip transcutaneous pinning Cardiac History: Hyperlipidemia, Arrhythmia (PAC's per Holter 2016), Other (AAA - being followed) Pulmonary History: Denies Any Significant HX WAX CUTTER History: Denies Any Significant HX Other Medical History: Other (CLL (diagnosed in 2016 and being followed by oncology)) Anesthesia History: No Prior Anesthetic Complications, Past Anesthesia (appendectomy, cataract surgery, hysterectomy, back surgery, colonoscopy, colpocleisis/vaginal closure) Alcohol Use: none Drug use: none Medications and Allergies Gabapentin [Neurontin] 800 mg PO TID 06/02/15 [History] Atenolol [Tenormin] 25 mg PO DAILY 07/16/15 [History] Calcium Carbonate [Calcium] 2,000 mg PO DAILY 07/16/15 [History] Ergocalciferol (VITAMIN D2) [Vitamin D] 1,000 unit PO DAILY 07/16/15 [History] Multivitamin [Multivitamins] 1 each PO DAILY 07/16/15 [History] Tizanidine HCl [Zanaflex] 0.5 mg PO HS 11/09/16 [History] HYDROcodone/Acet 7.5/325 mg [[place] 7.5-325 mg] 1 tab PO Q6H PRN 01/27/17 [History] Oxybutynin [Ditropan] 5 mg PO BID 5 Days #10 tablet 11/03/17 [Rx] Citalopram Hydrobromide [Citalopram HBr] 20 mg PO DAILY 11/10/17 [History] Omeprazole [PriLOSEC] 20 mg PO HS 11/10/17 [History] Allergy/AdvReac Type Severity Reaction Status Date / Time No Known Allergies Allergy Verified 11/07/17 21:06 - Meds/Allergy Pre-op Review Medications Reviewed: Yes Allergies Reviewed: Yes Beta Blockers on Current Med List: Yes (atenolol) If Beta Blockers taken, Date/Time (Last Dose taken): 01-07-18 atenolol at 11:23 Anesthesia Results - Labs 01/07/18 04:28 01/07/18 04:28 - Imaging EKG: report reviewed, image reviewed (Sinus rhythm Borderline short AL interval Low voltage, extremity leads) Additional studies: 01-07-18 CT head: IMPRESSION: No acute intracranial abnormality. 01-07-18 CT C-spine: IMPRESSION: No acute abnormality of the cervical spine. Cervical spondylosis and facet arthrosis with unchanged degenerative grade 1 anterolisthesis levels, as detailed above. 01-07-18 CT abd/pelvis without contrast: IMPRESSION: Nondisplaced impacted left femoral neck fracture. Right hip and bony pelvis are intact. Cholelithiasis. Diverticulosis. Large colonic stool volume without obstruction-query constipation. Infrarenal abdominal aortic aneurysms measuring 2.3 cm proximally and 4.0 cm along the more inferior aneurysmal segment, unchanged when measured in similar fashion. Recommend follow-up imaging on a yearly basis. Vascular consultation also recommended. (Reference: J Vasc Surg 2008;50(4 Suppl):S2-49) TTE: Impressions: LVEF 55%. Not all LV wall segments were well visualized. Mild left ventricular diastolic dysfunction. Dilated RV with normal function. Mild-moderate tricuspid regurgitation. No pulmonary hypertension. Holter: Impression: Underlying rhythm is sinus with average heart rate 60 bpm. Frequent supraventricular ectopy averaging 677 beats/hour. Infrequent ventricular ectopy. Symptoms correspond to sinus rhythm and rarely associated with PACs. Anesthesia Exam Last Vital Signs Temp 98.8 F 01/07/18 11:35 Pulse 63 01/07/18 11:35 Resp 18 01/07/18 11:35 BP 129/76 01/07/18 11:35 Pulse Ox 95 01/07/18 11:35 Weight: 43 kg - HEENT Pupil (Motor): Pupils equal, EOMI Mallampati: II - WAX CUTTER LOC: Oriented - Cardiac Rhythm: Regular Murmur: None - Pulmonary Breath Sounds: bilateral Clear Respiratory Effort: Symmetrical Anesthesia Assess/Plan ASA Score: 3 Level of consciousness: Cooperative Anesthetic Plan: General Reason for No Neuroaxial/Regional Block: Patient refusal Monitoring Plan: Standard Monitors Recovery Plan: PACU
[2018-01-07] MEDS ORDERED: Ethanol\\Acetic Acid\\Na Ace\\Ben 1,000 ML IRRIG.SOLN IR ONE (12:13)
[2018-01-07] MEDS ORDERED: EPHEDrine 50 MG/ML VIAL ONE (12:44)
[2018-01-07] MEDS ORDERED: *HR* HYDROmorphone (PF) 1 MG/ML SYRINGE IVP PRN (13:23)
[2018-01-07] MEDS ORDERED: *HR* OxyCODONE Immed Rel 5 MG TABLET PO PRN (13:23)
--- NOTE | 2018-01-07 14:13 | Operative Note ---
Date of procedure: 01/07/18 Pre-op diagnosis: Left hip femoral neck fracture, valgus impacted Post-op diagnosis: same Procedure: Left hip procedures pinning of femoral neck fracture Implants: Velvet 6.5 mm cannulated screws 85, 85 and 80 - short threads Anesthesia: ZACHA Surgeon: Paul Mcintyre Was there an workforce development assistant present: No Estimated blood loss (cc): 20 Tourniquet Time (Minutes): 0 Specimen: 0 Condition: stable Disposition: PACU Procedure in Detail: The patient received IV antibiotics in the holding area, she was brought to the operating room, a sign in was performed, and she underwent general anesthesia on the hospital bed. The patient was then transferred to the OR fracture table in supine position. The patient was positioned against the groin post, with traction applied to the left lower extremity. The contralateral lower extremity was then placed onto a well-padded leg saleem keeping her hip flexed and abducted. Once the patient was well positioned, the x-ray C-arm was brought in and fluoroscopy shots of the hip were taken, adjusting the lower extremity, making sure we will get a good AP and lateral views. Live fluoroscopy was also checked with the hip show it was stable in the valgus impacted position. The left hip and thigh down to the knee was then prepped and draped in standard technique. A timeout was performed. The guidewire was placed over the hip and it's position was checked under flu oroscopy. The guidewires in place precariously through skin and driven from the lateral cortex paralleling the inferior neck and staying central on the AP plane. This was driven up to the head, its position checked on AP and lateral views. A 3 cm longitudinal incisions then made going superior to the guidewire. The depth was measured, next I overdrilled the guidewire and placed the appropriate length screw with short threads. Another guidewire was then placed superior and anterior, steps were repeated to place another screw. Finally a third guidewire was placed posterior to the second wire, and fitted screw placements and technique. Screws were changed out if that too close to the articular surface of the head. Final AP and lateral shots were taken and saved, showing good screw placement. The wound was irrigated normal saline, deep tissue closed with 0 Vicryl, the subcutaneous tissues closed with 2-0 Vicryl sutures, and skin stapled. Sterile dressings were applied. The patient was then transferred to hospital bed where she was extubated and taken to recovery room in stable condition.
--- NOTE | 2018-01-07 15:04 | Anesthesia Evaluation Post Op ---
Date of Encounter: 01/07/18 Time of Encounter: 14:30 - Vital Signs Vital Signs: Last Vital Signs Temp 97.6 F 01/07/18 14:45 Pulse 67 01/07/18 14:45 Resp 12 01/07/18 14:45 BP 118/74 01/07/18 14:45 Pulse Ox 93 01/07/18 14:45 - Lungs Lungs: Clear Ascult./Percussion - Airway Airway: Non-obstructed - Cardiovascular Regular Rate - Mental Status Mental Status: Alert & Oriented, Answers Appropriately - Pain Pain Scale: 2 - Nausea Vomiting Nausea Vomiting: Responds to treatment with IV Meds - Hydration Hydration: NPO - Discharge PostOp Status: Transfer Patient to floor
[2018-01-07] MEDS ORDERED: Ringers Solution, Lactated 1,000 ML ONE (15:34)
[2018-01-07] MEDS: Gabapentin 400 MG CAPSULE PO SCH ×2 (16:40→19:35)
[2018-01-07] MEDS: Ringers Solution, Lactated 1,000 ML IVC SCH (17:50)
[2018-01-07] MEDS: *HR* Enoxaparin 30 MG/0.3 ML SYRINGE SQ SCH (18:01)
[2018-01-07] MEDS: TIZANIDINE HCL PO SCH (21:29)
[2018-01-07] MEDS: ceFAZolin 2,000 MG in 0.9 % Sodium Chloride 100 ML IVPB SCH (23:28)
[2018-01-08] MEDS: OXYCODONE Oral CONC 10 MG/0.5 ML ORAL.SYG SL PRN (03:38)
[2018-01-08] MEDS: Ketorolac 15 MG/ML VIAL IVP PRN (05:32)
[2018-01-08] MEDS: *HR* Enoxaparin 30 MG/0.3 ML SYRINGE SQ SCH (05:33)
[2018-01-08 06:23] LABS: Basophils % 0.3 %; Eosinophils # 0.1 K/mcL (0.0-0.6); Eosinophils % 1.1 %; Hematocrit 29.8 % (35.3-44.9); Immature Granulocytes % 0.2 % (0-4); Lymphocytes # 6.8 K/mcL (0.6-4.6); Lymphocytes % 56.2 %; Mean Corpuscular HGB Conc 32.2 g/dL (31.6-35.5); Mean Corpuscular Hemoglobin 31.3 pg (28.0-33.3); Mean Corpuscular Volume 97.1 fL (83.0-100.0); Mean Platelet Volume 9.3 fL (9.4-12.4); Monocytes # 0.4 K/mcL (0.0-1.3); Monocytes % 3.3 %; Neutrophils # 4.7 K/mcL (1.6-8.9); Platelet Count 104 K/mcL (140-400); Red Blood Count 3.07 M/mcL (3.82-4.97); Red Cell Distribution Width 13.9 % (11.5-14.5); Segmented Neutrophils % 38.9 %
[2018-01-08 06:34] LABS: Hemoglobin 9.6 g/dL (11.5-15.4)
[2018-01-08 06:44] LABS: BUN/Creatinine Ratio 15 (6-26); Blood Urea Nitrogen 14 mg/dL (8-23); Calcium 8.2 mg/dL (8.6-10.3); Carbon Dioxide 26 mEq/L (23-29); Chloride 105 mEq/L (98-107); Glucose 86 mg/dL (70-105); Osmolality,Calculated 282 (280-300); Potassium 4.7 mEq/L (3.5-5.1); Sodium 136 mEq/L (136-145); eGFR For Non-African Americans 59 (> 60)
[2018-01-08] MEDS: ceFAZolin 2,000 MG in 0.9 % Sodium Chloride 100 ML IVPB SCH (09:57)
[2018-01-08] MEDS: Cholecalciferol (D-3) 1,000 UNIT TABLET PO SCH (09:59)
[2018-01-08] MEDS: Gabapentin 400 MG CAPSULE PO SCH ×3 (09:59→21:18)
--- NOTE | 2018-01-08 17:06 | Orthopedics Progress Note ---
Date of Encounter: 01/08/18 Time of Encounter: 13:00 - Assessment and Plan (1) Femoral neck fracture Current Visit: Yes Status: Acute POD#1 s/p left hip pinning 01/07/18 H/H 9.6/29.8 afebrile VS stable Dressings c/d/i Continue with therapy TTWB status Apply ice as needed to left hip DVT prophylaxis - lovenox for 2 weeks then aspirin 325mg for 4 weeks Will follow up with Stephani Degroot PA-C in [facility] office on 01/22/18 Qualifiers: Encounter type: initial encounter Fracture type: closed Laterality: left Qualified Code(s): S72.002A - Fracture of unspecified part of neck of left femur, initial encounter for closed fracture Subjective Principal diagnosis: POD#1 s/p left hip pinning 01/07/18 Interval history: Patient states she is doing well right now. Pain well controlled. She was able to sit up at edge of bed with therapy but did not walk yet with walker. Denies any new concerns at this time. Objective Vital signs: Vital Signs Temp Pulse Resp BP Pulse Ox 01/08/18 15:49 98.8 F 67 17 101/61 98 01/08/18 10:51 98.5 F 60 20 82/51 95 01/08/18 06:49 98.9 F 61 16 85/50 98 01/08/18 03:49 98.6 F 66 18 100/49 95 01/07/18 22:59 98.8 F 63 18 98/62 98 01/07/18 19:49 98 01/07/18 18:41 98.3 F 71 14 93/57 98 Intake and Output 01/08/18 01/08/18 01/08/18 07:59 15:59 23:59 Intake Total 100 / 100 240 / 240 Output Total 275 / 275 Balance -175 / -175 240 / 240 Intake: IV Fluids 100 / 100 Ancef 2,000 MG In 0.9 % Sodium 100 / 100 Chloride 100 ML @ 200 mls/hr IVPB Q8HR [facility] Rx#:[id number] Oral 0 / 0 240 / 240 Output: Catheter 275 / 275 Urethral ([place]) 75 / 75 Other: Meal Breakfast Percent of Meal Consumed 80% Weight 44.3 kg Patient Weight 01/08/18 23:59 Weight 44.3 kg Incision: clean and dry (dressings to left hip c/d/i with no visible drainage or surrounding erythema. no calf pain to palpation. good dorsiflexion of foot. good sensation distally.) - Labs CBC & BMP: 01/08/18 05:54 01/08/18 05:54 Labs: Abnormal lab results WBC 12.1 K/mcL (4.3-11.1) H 01/08/18 05:54 RBC 3.07 M/mcL (3.82-4.97) L 01/08/18 05:54 Hgb 9.6 g/dL (11.5-15.4) L D 01/08/18 05:54 Hct 29.8 % (35.3-44.9) L 01/08/18 05:54 Plt Count 104 K/mcL (140-400) L 01/08/18 05:54 MPV 9.3 fL (9.4-12.4) L 01/08/18 05:54 Lymphocytes # 6.8 K/mcL (0.6-4.6) H 01/08/18 05:54 Reactive Lymphocytes Present (Not Present) A 01/07/18 04:28 Est GFR (Non-Af Amer) 59 (> 60) L 01/08/18 05:54 Calcium 8.2 mg/dL (8.6-10.3) L 01/08/18 05:54 Consult Discharge Plan - Plan Referrals: Pop Matson MD [Primary Care Provider] -
[2018-01-08] MEDS: Ringers Solution, Lactated 1,000 ML IVC SCH ×2 (19:11→21:30)
--- NOTE | 2018-01-08 21:04 | Electrocardiograph Report ---
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
[2018-01-08] MEDS: TIZANIDINE HCL PO SCH (21:20)
--- NOTE | 2018-01-08 23:53 | Internal Med Progress Note ---
Hospitalist Progress Note - Encounter Date of Encounter: 01/08/18 Time of Encounter: 11:00 - Subjective Interval History: SUBJECTIVE: The patient underwent a left hip pinning yesterday. She did well during and after the surgery. Denies chest pain and difficulty breathing. Denies coughing and wheezing. Denies nausea and vomiting she has normal urination. Physical therapy has been started. She is allowed touch to toe weightbearing. OBJECTIVE: Skin: Free of rash and discoloration. ENMT: Oral/pharyngeal mucosa is normal in appearance. Eyes: Sclera is white. There is no discharge from eyes. Respiratory: Normal breath sounds; no crackles or wheezes. CV: Heart is regular; no gallop or murmur. GI: Abdomen is soft and not tender. There is no palpable mass or visceromegaly. Neuro: There is no focal deficits. ADDITIONAL DATA: Hemoglobin is 9.6; 11.6 yesterday. WBC is 12.1 thousand; 19.2 thousand yesterday (she has CLL). Her BMP is normal. ASSESSMENT AND PLAN: Left femoral neck fracture. She had left hip pinning done yesterday. She will continue physical therapy. CLL. Seems to be in remission. AAA. She needs yearly CT of abdomen/pelvis. GERD. Under control. She is on Prilosec. DISPOSITION: She needs ECF placement. - Exam Vitals: Temp Pulse Resp BP Pulse Ox 99.8 F H 72 16 128/70 92 01/08/18 23:28 01/08/18 23:28 01/08/18 23:28 01/08/18 23:28 01/08/18 23:28 Exam: xx - Assessment and Plan (1) Femoral neck fracture Current Visit: Yes Status: Acute (2) CLL (chronic lymphocytic leukemia) Current Visit: Yes Status: Chronic (3) AAA (abdominal aortic aneurysm) Current Visit: Yes Status: Chronic (4) GERD (gastroesophageal reflux disease) Current Visit: Yes Status: Acute - Time Spent with Patient Total time spent is greater than 50% in coordination of care (as documented) at patient's floor/unit and/or counseling patient: 25 - 35 minutes Plan of Care Discussed with: patient Internal Medicine: Result - Labs CBC & Chem 7: 01/08/18 05:54 01/08/18 05:54 Labs: Short CBC 11/26/18 Range/Units 05:54 WBC 12.1 H (4.3-11.1) K/mcL Hgb 9.6 L D (11.5-15.4) g/dL Hct 29.8 L (35.3-44.9) % Plt Count 104 L (140-400) K/mcL Neutrophils # 4.7 (1.6-8.9) K/mcL BMP 01/08/18 05:54 Sodium 136 Potassium 4.7 Chloride 105 Carbon Dioxide 26 BUN 14 Creatinine 0.91 Glucose 86 Calcium 8.2 L - ABG Interpretation ABG results: PT/INR, D-dimer PT 12.1 Seconds (9.4-12.1) 01/07/18 04:28 Consult Discharge Plan - Plan Referrals: Pop Matson MD [Primary Care Provider] - (1) Femoral neck fracture Qualifiers: Encounter type: initial encounter Fracture type: closed Laterality: left Qualified Code(s): S72.002A - Fracture of unspecified part of neck of left femur, initial encounter for closed fracture (3) AAA (abdominal aortic aneurysm) Qualifiers: Presence of rupture: without rupture Qualified Code(s): I71.4 - Abdominal aortic aneurysm, without rupture (4) GERD (gastroesophageal reflux disease) Qualifiers: Esophagitis presence: esophagitis presence not specified Qualified Code(s): K21.9 - Gastro-esophageal reflux disease without esophagitis
[2018-01-09] MEDS: Ketorolac 15 MG/ML VIAL IVP PRN (05:45)
[2018-01-09] MEDS: *HR* Enoxaparin 30 MG/0.3 ML SYRINGE SQ SCH (05:46)
[2018-01-09] MEDS: Cholecalciferol (D-3) 1,000 UNIT TABLET PO SCH (09:11)
[2018-01-09] MEDS: Gabapentin 400 MG CAPSULE PO SCH ×3 (09:12→21:30)
--- NOTE | 2018-01-09 13:57 | Orthopedics Progress Note ---
Date of Encounter: 01/09/18 Time of Encounter: 12:50 - Assessment and Plan (1) Femoral neck fracture Current Visit: Yes Status: Acute POD#2 s/p left hip pinning 01/07/18 H/H 9.6/29.8 yesterdsay, was not repeated today, VS stable. temp max 99.8 last night, currently 99.0. Encouraged fluid hydration and IS. Dressings c/d/i, no calf pain. Continue with therapy, TTWB status Apply ice as needed to left hip Continue hip precautions DVT prophylaxis - lovenox for 2 weeks then aspirin 325mg for 4 weeks Will follow up with Stephani Degroot PA-C in office on 01/22/18 Qualifiers: Encounter type: initial encounter Fracture type: closed Laterality: left Qualified Code(s): S72.002A - Fracture of unspecified part of neck of left femur, initial encounter for closed fracture Subjective Principal diagnosis: POD#2 s/p left hip pinning 01/07/18 Interval history: Patient states she is doing well, sitting in chair beside bed. Able to get up with therapy and feels comfortable using walker and TTWB. Pain well controlled. She states she did have an episode last night where she was sweating likely coordinating with her low grade fever but she states that quickly resolved. States she chronically has episodes of low grade fevers that resolve on own after a nap. Denies any new concerns at this time. Objective Vital signs: Vital Signs Temp Pulse Resp BP Pulse Ox 01/09/18 11:52 99.0 F 62 15 114/68 93 01/09/18 07:00 98.7 F 72 16 129/73 94 01/09/18 04:14 99.1 F 70 16 130/72 93 01/08/18 23:28 99.8 F H 72 16 128/70 92 01/08/18 21:32 91 01/08/18 19:43 98.6 F 82 16 108/58 91 01/08/18 15:49 98.8 F 67 17 101/61 98 Intake and Output 01/08/18 01/09/18 01/09/18 23:59 07:59 15:59 Intake Total 340 / 340 440 / 440 Output Total 1500 / 1500 700 / 700 350 / 350 Balance -1160 / -1160 -700 / -700 90 / 90 Intake: Oral 340 / 340 440 / 440 Output: Urine 1500 / 1500 700 / 700 350 / 350 Other: Meal Dinner Breakfast Percent of Meal Consumed 40% Weight 44.4 kg Patient Weight 01/09/18 23:59 Weight 44.4 kg Incision: clean and dry (dressings to left hip c/d/i with no visible drainage or erythema. no calf pain, good dorsiflexion of foot, good sensation distally.) - Labs CBC & BMP: 01/08/18 05:54 01/08/18 05:54 Labs: Abnormal lab results WBC 12.1 K/mcL (4.3-11.1) H 01/08/18 05:54 RBC 3.07 M/mcL (3.82-4.97) L 01/08/18 05:54 Hgb 9.6 g/dL (11.5-15.4) L D 01/08/18 05:54 Hct 29.8 % (35.3-44.9) L 01/08/18 05:54 Plt Count 104 K/mcL (140-400) L 01/08/18 05:54 MPV 9.3 fL (9.4-12.4) L 01/08/18 05:54 Lymphocytes # 6.8 K/mcL (0.6-4.6) H 01/08/18 05:54 Reactive Lymphocytes Present (Not Present) A 01/07/18 04:28 Est GFR (Non-Af Amer) 59 (> 60) L 01/08/18 05:54 Calcium 8.2 mg/dL (8.6-10.3) L 01/08/18 05:54 Consult Discharge Plan - Plan Referrals: Pop Matson MD [Primary Care Provider] -
--- NOTE | 2018-01-09 20:43 | Internal Med Progress Note ---
Hospitalist Progress Note - Encounter Date of Encounter: 01/09/18 Time of Encounter: 20:41 - Subjective Interval History: Pt denies fever, chills, N/V or diarrhea. she denies chest pain or SOB. - Exam Vitals: Temp Pulse Resp BP Pulse Ox 98.7 F 66 15 111/66 92 01/09/18 18:57 01/09/18 18:57 01/09/18 18:57 01/09/18 18:57 01/09/18 18:57 Exam: General appearance: Present: mild distress, A&O X 3, pleasant, answers questions appropriately Exam: General: well nourished, well developed female in mild distress Head: normocephalic and atraumatic Eyes: PERRL, EOMI, sclera anicteric, conjunctiva pink Neck: supple, trachea midline Lungs: CTA bilaterally, non-labored breathing. No wheezes, rales, or rhonchi Heart: RRR +s1 +s2. No murmurs, clicks, or rubs. GI: abdomen soft, TTP near the left hip, non-distended. normoactive bowel sounds Extremities: warm, pulses palpable and symmetrical. no cyanosis or edema Neuro: A&Ox3. No focal deficits. Sensation intact. Skin: warm, dry, intact - Assessment and Plan (1) Femoral neck fracture Current Visit: Yes Status: Acute Assessment and Plan: Non-displaced impacted left femoral neck fracture as per CT POD#2 s/p left hip pinning 01/07/18. Ortho on board PRN pain meds. Pt awaiting placement for rehab (2) CLL (chronic lymphocytic leukemia) Current Visit: Yes Status: Chronic Assessment and Plan: Pt has hx of stage 0 CLL, and chronically elevated WBC Remains elevated at 19.2 today (3) AAA (abdominal aortic aneurysm) Current Visit: Yes Status: Chronic Assessment and Plan: Hx of 2 infrarenal AAAs Follows with Dr. Ellington outpatient H&H stable Denies having abdominal pain at this time. (4) GERD (gastroesophageal reflux disease) Current Visit: Yes Status: Acute Assessment and Plan: hx of GERD Resume home meds when cleared by surgery DVT Prophylaxis: Lovenox - Summary of Assessment and Plan Summary of Assessment and Plan: History of present illness: Dr. Martinez Ms. Chong is a 87 year old female with past medical history of GERD, osteoporosis, and HLD. She presented to the ED today for left hip pain after a fall at home. She states she slipped on the hardwood floors and fell down the stairs. Unknown loss of consciousness, however pt states she did remain on the floor for a short period of time until she was able to slide to reach a phone. She does endorse striking her head during the fall. Workup in the ED revealed an impacted left femoral neck fracture. Head CT was normal. C-spine CT was negative for acute abnormalities. CT abdomen/pelvis revealed the aforementioned hip fracture, as well as 2 infrarenal abdominal aortic aneurysms. During the encounter with this provider, the pt was resting in bed. States her pain is somewhat controlled with medication. She denies any headache, numbness, tingling, chest pain, shortness of breath, nausea, or vomiting. She does admit to some abdominal pain which radiates from her left hip. - Time Spent with Patient Total time spent is greater than 50% in coordination of care (as documented) at patient's floor/unit and/or counseling patient: less than 15 minutes Plan of Care Discussed with: patient Internal Medicine: Result - Labs CBC & Chem 7: 01/08/18 05:54 01/08/18 05:54 - ABG Interpretation ABG results: PT/INR, D-dimer PT 12.1 Seconds (9.4-12.1) 01/07/18 04:28 Consult Discharge Plan - Plan Referrals: Pop Matson MD [Primary Care Provider] - (1) Femoral neck fracture Qualifiers: Encounter type: initial encounter Fracture type: closed Laterality: left Qualified Code(s): S72.002A - Fracture of unspecified part of neck of left femur, initial encounter for closed fracture (3) AAA (abdominal aortic aneurysm) Qualifiers: Presence of rupture: without rupture Qualified Code(s): I71.4 - Abdominal aortic aneurysm, without rupture (4) GERD (gastroesophageal reflux disease) Qualifiers: Esophagitis presence: esophagitis presence not specified Qualified Code(s): K21.9 - Gastro-esophageal reflux disease without esophagitis
[2018-01-09] MEDS: OXYCODONE Oral CONC 10 MG/0.5 ML ORAL.SYG SL PRN (21:30)
[2018-01-09] MEDS ORDERED: tiZANidine 4 MG TABLET PO SCH (22:00)
[2018-01-10 05:22] LABS: Hematocrit 29.5 % (35.3-44.9); Hemoglobin 9.7 g/dL (11.5-15.4); Mean Corpuscular HGB Conc 32.9 g/dL (31.6-35.5); Mean Corpuscular Hemoglobin 31.4 pg (28.0-33.3); Mean Corpuscular Volume 95.5 fL (83.0-100.0); Mean Platelet Volume 10.1 fL (9.4-12.4); Platelet Count 110 K/mcL (140-400); Red Blood Count 3.09 M/mcL (3.82-4.97); Red Cell Distribution Width 13.7 % (11.5-14.5)
[2018-01-10 05:25] LABS: BUN/Creatinine Ratio 18 (6-26); Blood Urea Nitrogen 12 mg/dL (8-23); Calcium 8.6 mg/dL (8.6-10.3); Carbon Dioxide 28 mEq/L (23-29); Chloride 106 mEq/L (98-107); Glucose 91 mg/dL (70-105); Osmolality,Calculated 285 (280-300); Sodium 138 mEq/L (136-145); eGFR For Non-African Americans > 60 (> 60)
[2018-01-10] MEDS: *HR* Enoxaparin 30 MG/0.3 ML SYRINGE SQ SCH (05:29)
[2018-01-10] MEDS: OXYCODONE Oral CONC 10 MG/0.5 ML ORAL.SYG SL PRN ×2 (05:30→13:08)
[2018-01-10 06:15] LABS: Lymphocytes # 6.1 K/mcL (0.6-4.6); Monocytes # 0.2 K/mcL (0.0-1.3); Neutrophils # 5.4 K/mcL (1.6-8.9); Platelet Estimate Normal (Normal); Reactive Lymphocytes Present (Not Present)
[2018-01-10] MEDS: Gabapentin 400 MG CAPSULE PO SCH (08:48)
[2018-01-10] MEDS: Cholecalciferol (D-3) 1,000 UNIT TABLET PO SCH (08:48)
[2018-01-10 10:48] VITALS: BP 99/64
--- NOTE | 2018-01-10 11:54 | Discharge Summary ---
- NOTES TO OUTPATIENT PROVIDER Notes to Outpatient Provider: PCP in 5 to 7 days. Follow up with Orthopedic physician out pt. Date of Encounter: 01/10/18 Time of Encounter: 11:51 - Discharge Diagnosis (1) Femoral neck fracture Priority: Primary Status: Acute Assessment and Plan: Non-displaced impacted left femoral neck fracture as per CT POD#3 s/p left hip pinning 01/07/18. Ortho on board PRN pain meds. Pt seen by PT/OT and recommend rehab. She is being discharged to [facility] for inpt rehab. Qualifiers: Encounter type: initial encounter Fracture type: closed Laterality: left Qualified Code(s): S72.002A - Fracture of unspecified part of neck of left femu r, initial encounter for closed fracture (2) CLL (chronic lymphocytic leukemia) Priority: Secondary Status: Chronic Assessment and Plan: Pt has hx of stage 0 CLL, and chronically elevated WBC, 11.8 at discharge (3) AAA (abdominal aortic aneurysm) Priority: Secondary Status: Chronic Assessment and Plan: Hx of 2 infrarenal AAAs Follows with Dr. Ellington outpatient H&H stable. Denies CP radiating to her back Qualifiers: Presence of rupture: without rupture Qualified Code(s): I71.4 - Abdominal aortic aneurysm, without rupture (4) GERD (gastroesophageal reflux disease) Priority: Secondary Status: Acute Assessment and Plan: hx of GERD. On Omeprazole Resume home meds when cleared by surgery Qualifiers: Esophagitis presence: esophagitis presence not specified Qualified Code(s): K21.9 - Gastro-esophageal reflux disease without esophagitis (5) Thrush, oral Priority: Secondary Status: Acute Assessment and Plan: nystatin swish and spit. (6) Constipation Priority: Secondary Status: Resolved Assessment and Plan: Given Miralax prior to DC. Qualifiers: Constipation type: unspecified constipation type Qualified Code(s): K59.00 - Constipation, unspecified Hospital course: History of present illness: Dr. Martinez Ms. Chong is a 87 year old female with past medical history of GERD, osteoporosis, and HLD. She presented to the ED today for left hip pain after a fall at home. She states she slipped on the hardwood floors and fell down the stairs. Unknown loss of consciousness, however pt states she did remain on the floor for a short period of time until she was able to slide to reach a phone. She does endorse striking her head during the fall. Workup in the ED revealed an impacted left femoral neck fracture. Head CT was normal. C-spine CT was negative for acute abnormalities. CT abdomen/pelvis revealed the aforementioned hip fracture, as well as 2 infrarenal abdominal aortic aneurysms. During the encounter with this provider, the pt was resting in bed. States her pain is somewhat controlled with medication. She denies any headache, numbness, tingling, chest pain, shortness of breath, nausea, or vomiting. She does admit to some abdominal pain which radiates from her left hip. Dr. Coffey See assessment and plan for hospital course. Discharge discussed with: patient Time spent discussing smoking cessation with patient: 3 to 10 minutes - Time Spent with Patient Total time spent providing and/or coordinating discharge services: Greater than 30 minutes - Discharge Medications Home Medications: Gabapentin [Neurontin] 800 mg PO TID 06/02/15 [History] Atenolol [Tenormin] 25 mg PO DAILY 07/16/15 [History] Calcium Carbonate [Calcium] 2,000 mg PO DAILY 07/16/15 [History] Ergocalciferol (VITAMIN D2) [Vitamin D] 1,000 unit PO DAILY 07/16/15 [History] Multivitamin [Multivitamins] 1 each PO DAILY 07/16/15 [History] Tizanidine HCl [Zanaflex] 2 mg PO HS 11/09/16 [History] HYDROcodone/Acet 7.5/325 mg [[place] 7.5-325 mg] 1 tab PO Q6H PRN 01/27/17 [Hi story] Oxybutynin [Ditropan] 5 mg PO BID 5 Days #10 tablet 11/03/17 [Rx] Citalopram Hydrobromide [Citalopram HBr] 20 mg PO DAILY 11/10/17 [History] Omeprazole [PriLOSEC] 20 mg PO HS 11/10/17 [History] Sulfamethoxazole/Trimeth DS [Bactrim Ds] 1 tab PO BID 01/07/18 [History] traZODone [TraZODone] 50 mg PO DAILY PRN 01/07/18 [History] Allergies/Adverse Reactions: Allergy/AdvReac Type Severity Reaction Status Date / Time No Known Allergies Allergy Verified 01/07/18 12:39 Date of admission: 01/07/18 06:10 Primary care physician: Pop Matson MD Consults: 01/07/18 04:14 Consult to Orthopedic Surgery [CONS] Stat Consulting Provider: [facility] Reason for Consult: left femoral neck fracture Call Completed: No 01/07/18 16:24 Consult to Occupational Therapy [CONS] Routine Comment: Evaluate, develop and implement POC Reason for Consult: EVAL AND TREAT Does patient have active BEDREST order?: No Is patient medically & hemodynamically stable?: Yes Consult to Physical Therapy [CONS] Routine Comment: Evaluate, develop and implement POC Reason for Consult: EVAL AND TREAT Does patient have active BEDREST order?: No Is patient medically & hemodynamically stable?: Yes 01/09/18 07:39 Consult to Warehouse Inventory Clerk [CONS] Routine Reason for SW Consult: d/c planning Discharging clinician: Randi Coffey Anticipated date of discharge: 01/10/18 - Constitutional Vitals: Temp Pulse Resp BP Pulse Ox 98.4 F 67 18 99/64 93 01/10/18 10:45 01/10/18 10:45 01/10/18 10:45 01/10/18 10:45 01/10/18 10:45 General appearance: Present: mild distress, A&O X 3, pleasant, answers questions appropriately Exam: Exam: General appearance: Present: mild distress, A&O X 3, pleasant, answers questions appropriately Exam: General: well nourished, well developed female in mild distress Head: normocephalic and atraumatic Eyes: PERRL, EOMI, sclera anicteric, conjunctiva pink Neck: supple, trachea midline Lungs: CTA bilaterally, non-labored breathing. No wheezes, rales, or rhonchi Heart: RRR +s1 +s2. No murmurs, clicks, or rubs. GI: abdomen soft, TTP near the left hip, non-distended. normoactive bowel sounds Extremities: warm, pulses palpable and symmetrical. no cyanosis or edema Neuro: A&Ox3. No focal deficits. Sensation intact. Skin: warm, dry, intact - Patient Status Disposition: Transfer SNF Condition: Good Overall status at discharge: patient is progressing back to baseline - Discharge Instructions Follow Up With: Pop Matson MD [Primary Care Provider] - Forms: ED Satisfaction Letter - Diet and Activity Activity: as per physical therapy, increase activity as tolerated Diet: low fat, low cholesterol, low salt diet
--- NOTE | 2018-01-10 12:25 | Orthopedics Progress Note ---
Date of Encounter: 01/10/18 Time of Encounter: 11:45 - Assessment and Plan (1) Femoral neck fracture Current Visit: Yes Status: Acute POD#3 s/p left hip pinning 01/07/18 H/H 9.7/29.5 stable VS stable. temp max 99.1 since yesterday, currently 98.4. Encouraged fluid hydration and IS. Dressings c/d/i, no calf pain. Continue with therapy, TTWB status Apply ice as needed to left hip Continue hip precautions DVT prophylaxis - lovenox for 2 weeks then aspirin 325mg for 4 weeks Plan for DC to ECF today pending constipation. Hospitalist aware and placing ord ers for this. Will follow up with Stephani Degroot PA-C in [facility] office on 01/22/18 Qualifiers: Encounter type: initial encounter Fracture type: closed Laterality: left Qualified Code(s): S72.002A - Fracture of unspecified part of neck of left femur, initial encounter for closed fracture Subjective Principal diagnosis: POD#3 s/p left hip pinning 01/07/18 Interval history: Patient states she does not feel very well and stomach is bothering her. States she still has not had a bowel movement since being here and feels alittle nausea. States hip is not bothering her and she was able to walk to the bathroom this morning with assistance. Denies any other concerns. Objective Vital signs: Vital Signs Temp Pulse Resp BP Pulse Ox 01/10/18 10:45 98.4 F 67 18 99/64 93 01/10/18 06:19 99.1 F 60 16 133/83 93 01/09/18 23:30 98.7 F 65 14 113/68 90 01/09/18 18:57 98.7 F 66 15 111/66 92 01/09/18 15:34 98.5 F 68 16 94/52 93 Intake and Output 01/09/18 01/10/18 01/10/18 23:59 07:59 15:59 Intake Total 150 / 150 240 / 240 Output Total 300 / 300 800 / 800 Balance -150 / -150 -800 / -800 240 / 240 Intake: Oral 150 / 150 240 / 240 Output: Urine 300 / 300 800 / 800 Other: Meal Breakfast Percent of Meal Consumed 50% # Voids 1 1 Weight 45.6 kg Patient Weight 01/10/18 23:59 Weight 45.6 kg Incision: clean and dry (dressings c/d/i with no visible drainage or erythema, no calf pain, good dorsiflexion of foot, good sensation distally) - Labs CBC & BMP: 01/10/18 04:53 01/10/18 04:53 Labs: Abnormal lab results WBC 11.8 K/mcL (4.3-11.1) H 01/10/18 04:53 RBC 3.09 M/mcL (3.82-4.97) L 01/10/18 04:53 Hgb 9.7 g/dL (11.5-15.4) L 01/10/18 04:53 Hct 29.5 % (35.3-44.9) L 01/10/18 04:53 Plt Count 110 K/mcL (140-400) L 01/10/18 04:53 Lymphocytes # 6.1 K/mcL (0.6-4.6) H 01/10/18 04:53 Reactive Lymphocytes Present (Not Present) A 01/10/18 04:53 Consult Discharge Plan - Plan Referrals: Pop Matson MD [Primary Care Provider] -
--- NOTE | 2018-01-10 12:37 | Physician Discharge Referral ---
ExtendedCare Referral Info Transfer To: SNF Provider in Charge after Transfer: PCP Institutional Level of Care: Skilled - Diagnosis (1) Femoral neck fracture Priority: Primary Status: Acute (2) CLL (chronic lymphocytic leukemia) Status: Chronic (3) AAA (abdominal aortic aneurysm) Status: Chronic (4) GERD (gastroesophageal reflux disease) Status: Acute (5) Thrush, oral Status: Acute (6) Constipation Status: Resolved - Transfer Medications Home Medications: Gabapentin [Neurontin] 800 mg PO TID 06/02/15 [History] Atenolol [Tenormin] 25 mg PO DAILY 07/16/15 [History] Calcium Carbonate [Calcium] 2,000 mg PO DAILY 07/16/15 [History] Ergocalciferol (VITAMIN D2) [Vitamin D] 1,000 unit PO DAILY 07/16/15 [History] Multivitamin [Multivitamins] 1 each PO DAILY 07/16/15 [History] Tizanidine HCl [Zanaflex] 2 mg PO HS 11/09/16 [History] HYDROcodone/Acet 7.5/325 mg [[place] 7.5-325 mg] 1 tab PO Q6H PRN 01/27/17 [History] Oxybutynin [Ditropan] 5 mg PO BID 5 Days #10 tablet 11/03/17 [Rx] Citalopram Hydrobromide [Citalopram HBr] 20 mg PO DAILY 11/10/17 [History] Omeprazole [PriLOSEC] 20 mg PO HS 11/10/17 [History] Sulfamethoxazole/Trimeth DS [Bactrim Ds] 1 tab PO BID 01/07/18 [History] traZODone [TraZODone] 50 mg PO DAILY PRN 01/07/18 [History] Allergies/Adverse Reactions: Allergy/AdvReac Type Severity Reaction Status Date / Time No Known Allergies Allergy Verified 01/07/18 12:39 - Respiratory Orders Smoking Cessation: Smoking cessation has been advised. For more information, call the [place] Tobacco Quit Line at 8-045-CGKWNOW. - Advance Directives Code Status: Full Code - Rehabiliation Orders Rehab Orders: Evaluation for Physical Therapy, Evaluation for Occupational Therapy - Diet Orders Regular CERTIFICATION: I certify that the transfer of the above named patient to an Extended Care Facility is necessary for the continuing treatment of the diagnosis listed. The above information is true and accurate reflection of patient's current condit ion. Confidential - Redisclosure prohibited without a patient's written consent.
[2018-01-10] MEDS ORDERED: Nystatin SUSP 5 ML UD.LIQ BC SCH (13:00)
[2018-01-11] MEDS ORDERED: *HR* Enoxaparin 40 MG/0.4 ML SYRINGE SQ SCH (06:00)
[2018-01-11] MEDS ORDERED: Sennosides/Docusate Sodium TABLET PO SCH (09:00)
== END 2018-01-10 15:24 | DRG 481 ==
LOC: EMEROOARM 01:28 → 3NENU 01:28 → SUATTDRO 06:10 → 3NENU 06:17
PROVIDERS: ADMIT Internal Medicine; ATTEND Internal Medicine

== ENCOUNTER 2019-05-27 00:11 | Inpatient (IN) ==
[2019-05-27] MEDS ORDERED: Isovue-370 500 ML BOTTLE IVP ONE (00:32)
[2019-05-27 01:03] LABS: Basophils # 0.1 K/mcL (0.0-0.2); Basophils % 0.3 %; Eosinophils # 0.2 K/mcL (0.0-0.6); Hematocrit 40.8 % (35.3-44.9); Immature Granulocytes % 0.2 % (0-4); Lymphocytes # 10.7 K/mcL (0.6-4.6); Lymphocytes % 65.4 %; Mean Corpuscular HGB Conc 31.9 g/dL (31.6-35.5); Mean Corpuscular Volume 100.5 fL (83.0-100.0); Mean Platelet Volume 10.2 fL (9.4-12.4); Monocytes # 2.2 K/mcL (0.0-1.3); Monocytes % 13.3 %; Platelet Count 137 K/mcL (140-400); Red Blood Count 4.06 M/mcL (3.82-4.97); Red Cell Distribution Width 12.8 % (11.5-14.5); Segmented Neutrophils % 19.8 %; White Blood Count 16.4 K/mcL (4.3-11.1)
[2019-05-27 01:05] LABS: Neutrophils # 3.3 K/mcL (1.6-8.9)
[2019-05-27 01:13] LABS: BUN/Creatinine Ratio 17 (6-26); Blood Urea Nitrogen 18 mg/dL (8-23); Calcium 9.3 mg/dL (8.6-10.3); Carbon Dioxide 27 mEq/L (23-29); Chloride 104 mEq/L (98-107); Glucose 96 mg/dL (70-105); Osmolality,Calculated 290 (280-300); Potassium 4.1 mEq/L (3.5-5.1); Sodium 139 mEq/L (136-145); Troponin I < 0.03 ng/mL (< 0.04); eGFR For African Americans 59 (> 60); eGFR For Non-African Americans 49 (> 60)
[2019-05-27 01:27] LABS: Platelet Estimate Normal (Normal)
[2019-05-27 01:50] LABS: Bilirubin,Urine Negative (Negative); Blood,Urine Negative (Negative); Clarity,Urine Clear (Clear); Color,Urine Yellow (Yellow); Glucose,Urine (UA) Normal (Normal); Ketones,Urine Negative (Negative); Leukocyte Esterase,Urine Small (Negative); Nitrite,Urine Negative (Negative); PH,Urine 5.5 pH Units (5.0-8.0); Protein,Urine Negative (Neg-Trace); Specific Gravity,Urine 1.023 (1.010-1.025); Urobilinogen,Urine Normal (Normal)
[2019-05-27 01:52] LABS: Bacteria,Urine None Seen per hpf (None-Few); Hyaline Casts,Urine None Seen per lpf (None-Few); RBC,Urine 0-3 per hpf (0-3); Squamous Epithelial Cell,Urine Many per lpf (None-Few); WBC,Urine 0-3 per hpf (0-3)
[2019-05-27] MEDS ORDERED: *HR* OxyCODONE/APAP 5/325 TABLET PO ONE (03:05)
[2019-05-27] MEDS ORDERED: Naloxone 0.4 MG/ML INJ IVP PRN (04:46)
[2019-05-27] MEDS ORDERED: Ipratropium/Albuterol Neb 3 ML IH PRN (06:02)
[2019-05-27] MEDS ORDERED: Acetaminophen 325 MG TABLET PO PRN (06:13)
[2019-05-27] MEDS ORDERED: Ondansetron 4 MG/2 ML VIAL IVP PRN (06:13)
[2019-05-27] MEDS: *HR* Heparin 5,000 UNIT/ML VIAL SQ SCH ×3 (06:15→21:25)
[2019-05-27] MEDS: Gabapentin 300 MG CAPSULE PO SCH ×2 (07:00→17:16)
[2019-05-27] MEDS: 0.9 % Sodium Chloride 1,000 ML IVC SCH ×2 (07:02→21:27)
[2019-05-27] MEDS: cefTRIAXone 1,000 MG in 0.9 % Sodium Chloride Mini Bag 100 ML IVPB SCH (08:58)
[2019-05-27] MEDS ORDERED: Gabapentin 300 MG CAPSULE PO SCH (09:00)
[2019-05-27] MEDS: atenoloL 25 MG TABLET PO SCH (11:47)
[2019-05-27] MEDS: *HR* HYDROcodone/Acet 7.5/325 mg TABLET PO PRN ×2 (14:15→21:26)
[2019-05-27] MEDS: Furosemide 20 MG TABLET PO SCH (16:12)
[2019-05-27] MEDS: Sennosides/Docusate Sodium TABLET PO SCH (21:23)
[2019-05-27] MEDS: tiZANidine 4 MG TABLET PO SCH (21:23)
[2019-05-27] MEDS: traZODone 50 MG TABLET PO PRN (21:27)
[2019-05-28 01:47] LABS: Hematocrit 34.7 % (35.3-44.9); Mean Corpuscular HGB Conc 32.3 g/dL (31.6-35.5); Mean Corpuscular Hemoglobin 32.5 pg (28.0-33.3); Mean Corpuscular Volume 100.6 fL (83.0-100.0); Mean Platelet Volume 9.4 fL (9.4-12.4); Platelet Count 117 K/mcL (140-400); Red Blood Count 3.45 M/mcL (3.82-4.97); White Blood Count 13.3 K/mcL (4.3-11.1)
[2019-05-28 01:50] LABS: Hemoglobin 11.2 g/dL (11.5-15.4)
[2019-05-28 02:06] LABS: BUN/Creatinine Ratio 20 (6-26); Blood Urea Nitrogen 19 mg/dL (8-23); Calcium 8.9 mg/dL (8.6-10.3); Carbon Dioxide 27 mEq/L (23-29); Chloride 109 mEq/L (98-107); Glucose 92 mg/dL (70-105); Magnesium 2.1 mg/dL (1.6-2.6); Osmolality,Calculated 294 (280-300); Phosphorous 3.7 mg/dL (2.7-4.5); Potassium 4.3 mEq/L (3.5-5.1); Sodium 141 mEq/L (136-145); eGFR For African Americans > 60 (> 60); eGFR For Non-African Americans 54 (> 60)
[2019-05-28 02:24] LABS: Eosinophils # 0.5 K/mcL (0.0-0.6); Lymphocytes # 6.7 K/mcL (0.6-4.6); Monocytes # 0.3 K/mcL (0.0-1.3); Neutrophils # 5.9 K/mcL (1.6-8.9); Platelet Estimate Normal (Normal); Reactive Lymphocytes Present (Not Present); Smudge Cells Present (Not Present)
[2019-05-28] MEDS: *HR* Heparin 5,000 UNIT/ML VIAL SQ SCH ×3 (05:58→21:12)
[2019-05-28] MEDS: Gabapentin 300 MG CAPSULE PO SCH ×2 (05:58→17:44)
[2019-05-28] MEDS: *HR* HYDROcodone/Acet 7.5/325 mg TABLET PO PRN ×2 (07:03→21:20)
[2019-05-28] MEDS: Sennosides/Docusate Sodium TABLET PO SCH ×2 (09:31→20:22)
[2019-05-28] MEDS: Furosemide 20 MG TABLET PO SCH (09:32)
[2019-05-28] MEDS: atenoloL 25 MG TABLET PO SCH (09:32)
[2019-05-28] MEDS: cefTRIAXone 1,000 MG in 0.9 % Sodium Chloride Mini Bag 100 ML IVPB SCH (09:33)
[2019-05-28] MEDS ORDERED: Isosorbide MONOnitrate (24 HR) 30 MG TAB.ER.24H PO SCH (12:00)
[2019-05-28] MEDS: Aspirin 81 MG TAB.CHEW PO SCH (13:36)
[2019-05-28] MEDS: tiZANidine 4 MG TABLET PO SCH (20:23)
[2019-05-28] MEDS: traZODone 50 MG TABLET PO PRN (23:10)
[2019-05-29] MEDS: *HR* Heparin 5,000 UNIT/ML VIAL SQ SCH ×2 (05:20→15:17)
[2019-05-29] MEDS: Gabapentin 300 MG CAPSULE PO SCH (05:21)
[2019-05-29 06:02] LABS: Basophils % 0.2 %; Eosinophils # 0.1 K/mcL (0.0-0.6); Eosinophils % 1.1 %; Hematocrit 33.2 % (35.3-44.9); Hemoglobin 10.5 g/dL (11.5-15.4); Immature Granulocytes % 0.2 % (0-4); Lymphocytes # 7.9 K/mcL (0.6-4.6); Lymphocytes % 64.4 %; Mean Corpuscular HGB Conc 31.6 g/dL (31.6-35.5); Mean Corpuscular Hemoglobin 31.9 pg (28.0-33.3); Mean Corpuscular Volume 100.9 fL (83.0-100.0); Mean Platelet Volume 9.5 fL (9.4-12.4); Monocytes # 1.3 K/mcL (0.0-1.3); Monocytes % 10.8 %; Neutrophils # 2.9 K/mcL (1.6-8.9); Platelet Count 109 K/mcL (140-400); Red Blood Count 3.29 M/mcL (3.82-4.97); Segmented Neutrophils % 23.3 %; White Blood Count 12.3 K/mcL (4.3-11.1)
[2019-05-29 06:24] LABS: Platelet Estimate Slight Decrease (Normal); Reactive Lymphocytes Present (Not Present)
[2019-05-29] MEDS: *HR* HYDROcodone/Acet 7.5/325 mg TABLET PO PRN ×2 (06:27→13:22)
[2019-05-29] MEDS: Aspirin 81 MG TAB.CHEW PO SCH (10:20)
[2019-05-29] MEDS: Furosemide 20 MG TABLET PO SCH (10:20)
[2019-05-29] MEDS: atenoloL 25 MG TABLET PO SCH (10:21)
[2019-05-29] MEDS: Sennosides/Docusate Sodium TABLET PO SCH (10:21)
[2019-05-29] MEDS: cefTRIAXone 1,000 MG in 0.9 % Sodium Chloride Mini Bag 100 ML IVPB SCH (10:38)
[2019-05-29 11:12] VITALS: BP 131/72
[2019-05-29] MEDS ORDERED: Regadenoson 0.4 MG/5 ML SYRINGE IVP ONE (11:49)
== END 2019-05-29 16:39 | disposition home or self-care (01) | DRG 690 ==
LOC: EMEROOARM 00:11 → 3BNU 00:11 → SUATTDRO 04:03 → 3BNU 04:30
PROVIDERS: ADMIT Internal Medicine; ATTEND Internal Medicine

== ENCOUNTER 2020-07-24 12:09 | Observation (INO) ==
[2020-07-24] MEDS ORDERED: Aspirin 81 MG TAB.CHEW PO ONE (12:20)
[2020-07-24] MEDS ORDERED: Isovue-370 500 ML BOTTLE IVP ONE (12:27)
[2020-07-24 12:52] LABS: Hematocrit 34.8 % (35.3-44.9); Hemoglobin 10.9 g/dL (11.5-15.4); Mean Corpuscular HGB Conc 31.3 g/dL (31.6-35.5); Mean Corpuscular Hemoglobin 31.1 pg (28.0-33.3); Mean Corpuscular Volume 99.1 fL (83.0-100.0); Mean Platelet Volume 9.5 fL (9.4-12.4); Platelet Count 121 K/mcL (140-400); Red Blood Count 3.51 M/mcL (3.82-4.97); Red Cell Distribution Width 13.2 % (11.5-14.5); White Blood Count 14.1 K/mcL (4.3-11.1)
[2020-07-24 12:59] LABS: Prothrombin Time 12.1 Seconds (9.4-12.1)
[2020-07-24 13:01] LABS: Activated Partial Thrombo Time 27.5 Seconds (26.0-36.0)
[2020-07-24 13:14] LABS: BUN/Creatinine Ratio 13 (6-26); Blood Urea Nitrogen 13 mg/dL (8-23); Calcium 9.1 mg/dL (8.6-10.3); Carbon Dioxide 27 mEq/L (23-29); Chloride 105 mEq/L (98-107); Glucose 89 mg/dL (70-105); Osmolality,Calculated 290 (280-300); Potassium 4.3 mEq/L (3.5-5.1); Sodium 140 mEq/L (136-145); eGFR For African Americans > 60 (> 60); eGFR For Non-African Americans 54 (> 60)
[2020-07-24 13:15] LABS: Troponin I < 0.03 ng/mL (< 0.04)
[2020-07-24 13:20] LABS: Eosinophils # 0.3 K/mcL (0.0-0.6); Lymphocytes # 7.8 K/mcL (0.6-4.6); Monocytes # 0.6 K/mcL (0.0-1.3); Neutrophils # 5.5 K/mcL (1.6-8.9); Platelet Estimate Slight Decrease (Normal); Reactive Lymphocytes Present (Not Present)
[2020-07-24] MEDS ORDERED: Acetaminophen 325 MG TABLET PO PRN (15:37)
[2020-07-24] MEDS ORDERED: Ondansetron 4 MG/2 ML VIAL IVP PRN (15:37)
[2020-07-24] MEDS ORDERED: Naloxone 0.4 MG/ML INJ IVP PRN (15:37)
[2020-07-24] MEDS ORDERED: traZODone 50 MG TABLET PO PRN (15:40)
[2020-07-24] MEDS ORDERED: Nitroglycerin 0.4 MG TAB.SUBL SL PRN (15:43)
[2020-07-24] MEDS: Gabapentin 300 MG CAPSULE PO SCH (17:51)
[2020-07-24] MEDS: Furosemide 20 MG/2 ML VIAL IVP SCH (17:52)
[2020-07-24] MEDS: *HR* Heparin 5,000 UNIT/ML VIAL SQ SCH (17:52)
[2020-07-24] MEDS: *HR* HYDROcodone/Acet 7.5/325 mg TABLET PO PRN (18:01)
[2020-07-24] MEDS ORDERED: tiZANidine 4 MG TABLET PO PRN (21:00)
[2020-07-24] MEDS: Ipratropium/Albuterol Neb 3 ML IH PRN (23:10)
[2020-07-25] MEDS: Gabapentin 300 MG CAPSULE PO SCH ×4 (00:06→23:08)
[2020-07-25] MEDS: *HR* HYDROcodone/Acet 7.5/325 mg TABLET PO PRN ×4 (00:07→23:11)
[2020-07-25 00:49] LABS: BUN/Creatinine Ratio 16 (6-26); Blood Urea Nitrogen 16 mg/dL (8-23); Calcium 8.7 mg/dL (8.6-10.3); Carbon Dioxide 27 mEq/L (23-29); Chloride 105 mEq/L (98-107); Chol/HDL Ratio 4.6 (0-4.9); Cholesterol 190 mg/dL (< 200); Glucose 113 mg/dL (70-105); HDL Cholesterol 41 mg/dL (40-59); LDL Cholesterol,Calculated 124 mg/dL (< 100); Magnesium 2.2 mg/dL (1.6-2.6); Osmolality,Calculated 290 (280-300); Phosphorous 3.7 mg/dL (2.7-4.5); Potassium 3.9 mEq/L (3.5-5.1); Sodium 139 mEq/L (136-145); Triglycerides 123 mg/dL (< 150); eGFR For African Americans > 60 (> 60); eGFR For Non-African Americans 52 (> 60)
[2020-07-25 01:12] LABS: Basophils # 0.1 K/mcL (0.0-0.2); Basophils % 0.4 %; Eosinophils # 0.1 K/mcL (0.0-0.6); Eosinophils % 0.8 %; Hematocrit 32.2 % (35.3-44.9); Hemoglobin 10.3 g/dL (11.5-15.4); Immature Granulocytes % 0.1 % (0-4); Lymphocytes # 8.1 K/mcL (0.6-4.6); Lymphocytes % 60.1 %; Mean Corpuscular Hemoglobin 31.1 pg (28.0-33.3); Mean Corpuscular Volume 97.3 fL (83.0-100.0); Mean Platelet Volume 9.9 fL (9.4-12.4); Monocytes # 2.8 K/mcL (0.0-1.3); Monocytes % 20.7 %; Neutrophils # 2.4 K/mcL (1.6-8.9); Platelet Count 126 K/mcL (140-400); Red Blood Count 3.31 M/mcL (3.82-4.97); Red Cell Distribution Width 13.2 % (11.5-14.5); Segmented Neutrophils % 17.9 %; White Blood Count 13.5 K/mcL (4.3-11.1)
[2020-07-25 02:18] LABS: Platelet Estimate Slight Decrease (Normal); Reactive Lymphocytes Present (Not Present)
[2020-07-25] MEDS: *HR* Heparin 5,000 UNIT/ML VIAL SQ SCH ×2 (04:26→16:28)
[2020-07-25] MEDS: Furosemide 20 MG/2 ML VIAL IVP SCH ×2 (07:21→16:30)
[2020-07-25] MEDS: Cholecalciferol (D-3) 1,000 UNIT (25MCG) TABLET PO SCH (07:21)
[2020-07-25] MEDS ORDERED: Furosemide 20 MG TABLET PO SCH (09:00)
[2020-07-25] MEDS: Ipratropium/Albuterol Neb 3 ML IH PRN (21:14)
[2020-07-26] MEDS: *HR* Heparin 5,000 UNIT/ML VIAL SQ SCH (04:14)
[2020-07-26 06:32] VITALS: BP 125/71
[2020-07-26] MEDS: Furosemide 20 MG/2 ML VIAL IVP SCH (07:27)
[2020-07-26] MEDS: Cholecalciferol (D-3) 1,000 UNIT (25MCG) TABLET PO SCH (07:28)
[2020-07-26] MEDS: *HR* HYDROcodone/Acet 7.5/325 mg TABLET PO PRN (07:28)
[2020-07-26] MEDS: Gabapentin 300 MG CAPSULE PO SCH (07:28)
[2020-07-26] MEDS: Ipratropium/Albuterol Neb 3 ML IH PRN (08:15)
[2020-07-26] MEDS ORDERED: GI Cocktail 40 ML EACH PO ONE (08:32)
[2020-07-26] MEDS ORDERED: atenoloL 25 MG TABLET PO SCH (09:00)
[2020-07-26] MEDS ORDERED: Vitamin B Complex/Vit C/Vit E 1 EACH TABLET PO SCH (09:00)
[2020-07-26] MEDS ORDERED: Cholecalciferol (D-3) 1,000 UNIT (25MCG) TABLET PO SCH (09:00)
== END 2020-07-26 13:33 | disposition home or self-care (01) ==
LOC: 3BNU 12:09 → EMEROOARM 12:09 → SUATTDRO 15:21 → 3BNU 16:24
PROVIDERS: ADMIT Internal Medicine; ATTEND Internal Medicine

== ENCOUNTER 2020-07-29 00:36 | Observation (INO) ==
[2020-07-29 01:18] LABS: Basophils % 0.3 %; Eosinophils # 0.1 K/mcL (0.0-0.6); Eosinophils % 0.7 %; Hematocrit 32.5 % (35.3-44.9); Hemoglobin 10.3 g/dL (11.5-15.4); Immature Granulocytes % 0.2 % (0-4); Lymphocytes # 8.9 K/mcL (0.6-4.6); Lymphocytes % 60.3 %; Mean Corpuscular HGB Conc 31.7 g/dL (31.6-35.5); Mean Corpuscular Hemoglobin 31.1 pg (28.0-33.3); Mean Corpuscular Volume 98.2 fL (83.0-100.0); Mean Platelet Volume 9.8 fL (9.4-12.4); Monocytes # 2.4 K/mcL (0.0-1.3); Neutrophils # 3.3 K/mcL (1.6-8.9); Platelet Count 132 K/mcL (140-400); Red Blood Count 3.31 M/mcL (3.82-4.97); Red Cell Distribution Width 13.3 % (11.5-14.5); Segmented Neutrophils % 22.5 %; White Blood Count 14.7 K/mcL (4.3-11.1)
[2020-07-29 01:21] LABS: Bilirubin,Urine Negative (Negative); Blood,Urine Negative (Negative); Clarity,Urine Clear (Clear); Color,Urine Light-Yellow (Yellow); Glucose,Urine (UA) Normal (Normal); Ketones,Urine Negative (Negative); Leukocyte Esterase,Urine Moderate (Negative); Nitrite,Urine Negative (Negative); Protein,Urine Negative (Neg-Trace); RBC,Urine 0-3 per hpf (0-3); Specific Gravity,Urine 1.016 (1.010-1.025); Squamous Epithelial Cell,Urine Few per hpf (None-Few); Urobilinogen,Urine Normal (Normal); WBC,Urine 0-3 per hpf (0-3)
[2020-07-29 01:34] LABS: Reactive Lymphocytes Present (Not Present)
[2020-07-29 01:35] LABS: Platelet Estimate Slight Decrease (Normal); Smudge Cells Present (Not Present)
[2020-07-29 01:38] LABS: Albumin 3.9 g/dL (3.5-5.7); Albumin/Globulin Ratio 1.9 (1.1-2.2); Bilirubin,Direct 0.1 mg/dL (0.0-0.2); Bilirubin,Indirect 0.2 mg/dL (0.0-1.0); Bilirubin,Total 0.3 mg/dL (0.3-1.0); Globulin 2.1 g/dL (2.4-3.5)
[2020-07-29 01:40] LABS: BUN/Creatinine Ratio 24 (6-26); Blood Urea Nitrogen 37 mg/dL (8-23); Carbon Dioxide 27 mEq/L (23-29); Chloride 103 mEq/L (98-107); Glucose 114 mg/dL (70-105); Osmolality,Calculated 298 (280-300); Potassium 4.1 mEq/L (3.5-5.1); Sodium 139 mEq/L (136-145); Troponin I < 0.03 ng/mL (< 0.04); eGFR For African Americans 38 (> 60); eGFR For Non-African Americans 32 (> 60)
[2020-07-29] MEDS ORDERED: Isovue-370 500 ML BOTTLE IVP ONE (02:28)
[2020-07-29] MEDS ORDERED: Aspirin 81 MG TAB.CHEW PO ONE (04:35)
[2020-07-29] MEDS ORDERED: Perflutren Lipid Microsphere 1.3 ML in 0.9 % Sodium Chloride 8.7 ML IVP PRN (05:33)
[2020-07-29] MEDS ORDERED: Morphine Sulfate 2 MG/ML SYRINGE IVP PRN (05:57)
[2020-07-29] MEDS ORDERED: Nitroglycerin 0.4 MG TAB.SUBL SL PRN (05:58)
[2020-07-29] MEDS ORDERED: Famotidine 20 MG/2 ML VIAL IVP SCH ×2 (06:00→21:00)
[2020-07-29] MEDS ORDERED: Acetaminophen 325 MG TABLET PO PRN (06:00)
[2020-07-29] MEDS ORDERED: Naloxone 0.4 MG/ML INJ IVP PRN (06:00)
[2020-07-29] MEDS ORDERED: Prochlorperazine 10 MG/2 ML VIAL IVP PRN (06:05)
[2020-07-29] MEDS: *HR* Heparin 5,000 UNIT/ML VIAL SQ SCH ×2 (07:15→17:48)
[2020-07-29] MEDS: 0.9 % Sodium Chloride 500 ML IVC SCH ×2 (07:16→17:49)
[2020-07-29] MEDS ORDERED: Aspirin Enteric Coated 81 MG Tablet PO SCH (09:00)
[2020-07-29] MEDS ORDERED: Bisacodyl 10 MG RECTAL SUPPOSITORY RC PRN (09:40)
[2020-07-29] MEDS ORDERED: Regadenoson 0.4 MG/5 ML SYRINGE IVP ONE ×2 (10:21→10:31)
[2020-07-29] MEDS ORDERED: traZODone 50 MG TABLET PO PRN (11:56)
[2020-07-29] MEDS ORDERED: atenoloL 25 MG TABLET PO SCH (11:57)
[2020-07-29] MEDS: Gabapentin 300 MG CAPSULE PO SCH (12:43)
[2020-07-29 13:41] LABS: Troponin I < 0.03 ng/mL (< 0.04)
[2020-07-29] MEDS: *HR* HYDROcodone/Acet 7.5/325 mg TABLET PO PRN (14:24)
[2020-07-29] MEDS ORDERED: Milk and Molasses Enema 200 ML RC ONE (16:28)
[2020-07-29 16:39] LABS: % Iron Saturation 28 % (15-50); Iron 101 mcg/dL (50-170); Transferrin 261 mg/dL (203-362)
[2020-07-29 16:46] LABS: Ferritin 52 ng/mL (10-120)
[2020-07-29] MEDS ORDERED: Lactulose Oral Soln 20 GM/30 ML UDC PO SCH (21:00)
[2020-07-30] MEDS: *HR* HYDROcodone/Acet 7.5/325 mg TABLET PO PRN (00:02)
[2020-07-30] MEDS: Gabapentin 300 MG CAPSULE PO SCH (00:03)
[2020-07-30] MEDS: 0.9 % Sodium Chloride 500 ML IVC SCH (04:27)
[2020-07-30] MEDS: *HR* Heparin 5,000 UNIT/ML VIAL SQ SCH (04:27)
[2020-07-30 06:45] LABS: INR 1.1; Prothrombin Time 12.6 Seconds (9.4-12.1)
[2020-07-30 06:48] LABS: Activated Partial Thrombo Time 30.4 Seconds (26.0-36.0)
[2020-07-30 07:05] VITALS: BP 137/82
[2020-07-30 07:14] LABS: Hematocrit 32.1 % (35.3-44.9); Hemoglobin 10.1 g/dL (11.5-15.4); Mean Corpuscular HGB Conc 31.5 g/dL (31.6-35.5); Mean Corpuscular Hemoglobin 30.8 pg (28.0-33.3); Mean Corpuscular Volume 97.9 fL (83.0-100.0); Mean Platelet Volume 9.9 fL (9.4-12.4); Platelet Count 123 K/mcL (140-400); Red Blood Count 3.28 M/mcL (3.82-4.97); Red Cell Distribution Width 13.2 % (11.5-14.5); White Blood Count 12.7 K/mcL (4.3-11.1)
[2020-07-30 07:40] LABS: Chol/HDL Ratio 4.6 (0-4.9); Magnesium 2.1 mg/dL (1.6-2.6); Potassium 3.9 mEq/L (3.5-5.1)
[2020-07-30 07:58] LABS: Eosinophils # 0.4 K/mcL (0.0-0.6); Monocytes # 0.1 K/mcL (0.0-1.3); Neutrophils # 3.2 K/mcL (1.6-8.9)
[2020-07-30 07:59] LABS: Platelet Estimate Slight Decrease (Normal); Reactive Lymphocytes Present (Not Present); Smudge Cells Present (Not Present)
[2020-07-30] MEDS ORDERED: Vitamin B Complex/Vit C/Vit E 1 EACH TABLET PO SCH (09:00)
[2020-07-30] MEDS ORDERED: Cholecalciferol (D-3) 1,000 UNIT (25MCG) TABLET PO SCH (09:00)
[2020-07-30] MEDS ORDERED: Furosemide 20 MG TABLET PO SCH (09:00)
[2020-07-30] MEDS ORDERED: Multivit/Ca/Min/Fe/FA 1 TAB TABLET PO SCH (09:00)
== END 2020-07-30 13:00 | disposition home or self-care (01) ==
LOC: 3NENU 00:36 → EMEROOARM 00:36 → SUATTDRO 05:44 → 3NENU 06:33
PROVIDERS: ADMIT Student in an Organized Health Care Education/Training Program; ATTEND Family Medicine